=== PATIENT | female | born 1960 | race African-American/Black ===

== ENCOUNTER → 2024-03-10 13:22 | Outpatient (REF) | payer BC, SELFPAY | LOC: WDC 13:22 | PROVIDERS: ATTENDING PHYSICIAN Obstetrics & Gynecology Gynecology; FAMILY PHYSICIAN Family Medicine | DX: Z12.31 Encounter for screening mammogram for malignant neoplasm of breast (principal) | CPT/HCPCS: 77063; 77067 ==

== ENCOUNTER → 2024-07-26 11:51 | Outpatient (REF) | payer BC, SELFPAY | LOC: RAD 11:51 | PROVIDERS: ATTENDING PHYSICIAN Family Medicine | DX: R05.8 Other specified cough (principal); R91.8 Other nonspecific abnormal finding of lung field; D84.821 Immunodeficiency due to drugs | CPT/HCPCS: 71046 ==

== ENCOUNTER → 2024-12-15 08:12 | Outpatient (REF) | payer BC, SELFPAY | LOC: RAD 08:12 | PROVIDERS: ATTENDING PHYSICIAN Family Medicine | DX: J18.9 Pneumonia, unspecified organism (principal) | CPT/HCPCS: 71046 ==

== ENCOUNTER → 2024-12-30 16:23 | Outpatient (REF) | payer BC, SELFPAY | LOC: RAD 16:23 | PROVIDERS: ATTENDING PHYSICIAN Family Medicine | DX: R93.89 Abnormal findings on diagnostic imaging of other specified body structures (principal); J18.1 Lobar pneumonia, unspecified organism; R07.9 Chest pain, unspecified | CPT/HCPCS: 71260; Q9967 ==

== ENCOUNTER → 2025-01-24 13:34 | Outpatient (REF) | payer BC, SELFPAY | LOC: RCS 13:34 | PROVIDERS: ATTENDING PHYSICIAN Internal Medicine; FAMILY PHYSICIAN Family Medicine | DX: R01.1 Cardiac murmur, unspecified (principal) | CPT/HCPCS: 93306 ==

== ENCOUNTER 2025-01-26 09:04 | Day surgery (SDC) | payer BC, SELFPAY ==
[2025-01-26] VITALS (13 sets, daily range): BP systolic 121–150; BP diastolic 80–89; BMI 30.1
[2025-01-26 09:44] LABS: Glucose - Point of Care 123 mg/dl (70-99)
--- NOTE | 2025-01-26 11:12 | ITS.CL.CATH ---
Municipal Engineer - Catheterization
Cardiac Catheterization
Procedure Report:
CARDIAC CATHETERIZATION REPORT
Date of Procedure: 01/26/2025
Referring: Agustin Fragoso M.D.
INDICATION: Severe aortic valve stenosis.
PROCEDURE:
1. Coronary angiography.
A total of 45 minutes of procedural/moderate sedation was utilized. An independent medical services coordinator was present to assist with and help manage the patient's level of consciousness and physiologic status.
ACCESS:
1. 6 [place] right radial artery using a modified Seldinger technique.
CATHETERS:
1. 5 [place] JR4.
2. 5 [place] JL 3.5.
3. 5 [place] multipurpose.
HEMODYNAMIC DATA
Weight (kg): 74.4
AO (s/d/x, mmHg): 125/80/100
LV (s/x mmHg): Not obtained.
AV gradient (x, mmHg): Not obtained.
LEFT VENTRICULOGRAPHY: Not performed.
CORONARY ANGIOGRAPHY
Dominance: Right.
Left Main: Normal size but relatively short, bifurcating vessel. There is no coronary artery disease.
LAD: Large size vessel giving rise to several small diagonals. There is no coronary artery disease.
Ramus: Congenitally absent.
Circumflex: Large size, nondominant vessel giving rise to 2 obtuse marginals. OM1 is a small, vestigial vessel arising very high on the circumflex. OM 2 is a large vessel which subsequently bifurcates into an upper and lower branch. The
upper branch is a medium size branch supplying the lateral wall. The lower branch is a large branch with several distal daughter vessel supplying the entire inferolateral wall. There is no coronary artery disease.
RCA: Medium size, dominant vessel with a low-lying, anterior origin making it difficult to cannulate. Nonselective angiography was performed. There is no evidence of coronary artery disease.
INTERVENTION(S)
None.
Closure Device: Vascular band.
Radiation (mGy): 512.63
DAP (cm2.Gy): 31.8498
Fluoroscopy time (minutes): 12.7
CONCLUSIONS
1. Right dominant circulation with an anterior, low-lying origin of the RCA making it difficult to cannulate from a radial approach with no coronary artery disease in the right or left coronary trees.
2. Severe aortic valve stenosis on echocardiography.
3. Severe right subclavian/innominate artery tortuosity.
RECOMMENDATIONS:
1. Expectant management after cardiac catheterization via right radial approach.
2. Limited weight bearing on the right wrist for one week.
3. Continue evaluation for aortic valve replacement. Consultation with CT surgery.
4. Preop valve CTA.
5. Future cardiac catheterization should be performed from a left radial or femoral approach given the severe tortuosity of the right subclavian/innominate system.
Copy to: Agustin Fragoso M.D., Dena Gallegos M.D.
Vishnu Clemente DO, FACC, FACP
== END 2025-01-26 14:20 | disposition home or self-care (01) ==
LOC: CATH 09:04
PROVIDERS: ATTENDING PHYSICIAN Internal Medicine Cardiovascular Disease; FAMILY PHYSICIAN Family Medicine; OTHER PHYSICIAN Internal Medicine
DX: I35.0 Nonrheumatic aortic (valve) stenosis (principal); E78.1 Pure hyperglyceridemia; E78.00 Pure hypercholesterolemia, unspecified; E11.9 Type 2 diabetes mellitus without complications; I10 Essential (primary) hypertension; Z79.82 Long term (current) use of aspirin; Z79.84 Long term (current) use of oral hypoglycemic drugs; Z79.4 Long term (current) use of insulin; Z79.899 Other long term (current) drug therapy
CPT/HCPCS: 99152; 99153; 82962; 93458; C1769; C1894; Q9967

== ENCOUNTER → 2025-01-31 13:35 | Outpatient (REF) | payer BC, SELFPAY | LOC: RAD 13:35 | PROVIDERS: ATTENDING PHYSICIAN Internal Medicine; FAMILY PHYSICIAN Family Medicine | DX: I35.0 Nonrheumatic aortic (valve) stenosis (principal); R01.1 Cardiac murmur, unspecified; I20.0 Unstable angina; E11.65 Type 2 diabetes mellitus with hyperglycemia; I10 Essential (primary) hypertension; R06.02 Shortness of breath; R07.9 Chest pain, unspecified | CPT/HCPCS: 74174; 75572; Q9967 ==

== ENCOUNTER → 2025-02-21 09:53 | Outpatient (REF) | payer BC, SELFPAY | LOC: RAD 09:53 | PROVIDERS: ATTENDING PHYSICIAN Obstetrics & Gynecology Gynecology; FAMILY PHYSICIAN Family Medicine | DX: Z78.0 Asymptomatic menopausal state (principal) | CPT/HCPCS: 77080 ==

== ENCOUNTER 2025-02-27 05:01 | Inpatient (IN) | payer BC, SELFPAY ==
[2025-02-16 12:30] VITALS: BMI 29.1
[2025-02-16 13:20] LABS: Hematocrit 29.8 % (37.0-47.0); Hemoglobin 9.4 g/dL (12.0-16.0); Mean Corp Hgb Conc. 31.5 g/dL (33.0-37.0); Mean Corpuscular Volume 90.0 fL (81.0-99.0); Nucleated Red Blood Cells % 0 %; Platelet Count 185 10^3/uL (130-400); Red Cell Dist. Width 14.9 % (11.5-14.5)
[2025-02-16 13:32] LABS: INR 0.85; PT 12.2 Sec (11.4-14.6)
[2025-02-16 13:34] LABS: Urine Character Clear (Clear)
[2025-02-16 13:45] LABS: ALT (SGPT) 27 U/L (0-35); AST (SGOT) 35 U/L (14-36); Albumin 4.5 g/dl (3.5-5.0); Alkaline Phosphatase 42 U/L (38-126); Blood Urea Nitrogen 14 mg/dl (7-17); Calcium 9.5 mg/dl (8.4-10.2); Carbon Dioxide 31 mmol/L (22-30); Chloride 104 mmol/L (98-107); Estimated Creatinine Clearance 81 ml/min; Glucose 184 mg/dl (70-99); Potassium 4.0 mmol/L (3.5-5.1); Sodium 141 mmol/L (135-145); Total Protein 8.2 g/dl (6.3-8.2); eGFR > 60.00
[2025-02-16 14:10] LABS: Glycohemoglobin (HgbA1c) 8.2 % (4.0-5.9)
--- NOTE | 2025-02-16 14:12 | CM ---
Chart reviewed. Met with the patient in PAT, reviewed preoperative and postoperative instructions and restrictions, along with showering guidelines. Gave patient 2 soaps. Patient is agreeable to a home visit by CT Transitional RN. Patient is
independent of ADLS, lives with her in a 2 STH, 1 JERROD through the front and 4 JERROD through the deck, 0 DME. Plan is for the patient to return home with CT Transitional RN.
[2025-02-16 14:13] LABS: Urine Red Blood Cell 0-2 /HPF (0-2)
[2025-02-27] VITALS (12 sets, daily range): BP systolic 80–126; BP diastolic 61–84; BMI 28.6
[2025-02-27] MEDS: PROTONIX 40 MG PO (05:43)
[2025-02-27] MEDS: LOPRESSOR 25 MG PO (05:43)
[2025-02-27] MEDS: MAGNESIUM OXIDE 400 MG PO (05:43)
[2025-02-27] MEDS: BACTROBAN 2% OINTMENT 1 APPLIC NASAL ×2 (06:12→19:28)
--- NOTE | 2025-02-27 06:35 | PTCARENOTE ---
pt admitted to CVICU room 2263. pt confirmed 2 showers at home. pt clipped and prepped for CVOR. pre-op meds given. pre-op education provided. vocational education teacher to CVOR.
--- NOTE | 2025-02-27 06:38 | W.CVOR.SURPR ---
CVOR Surgeon Immed Pre Op
-
I have examined this patient prior to performance of the scheduled procedure.
The patient's condition is unchanged from the time of the dictated/written History and
Physical and the patient is able to undergo the scheduled procedure.
[2025-02-27 07:28] LABS: ACT+ - POC 107 Seconds (82-134)
[2025-02-27 07:32] LABS: Urine Character Clear (Clear)
--- NOTE | 2025-02-27 08:19 | PN.DE.MGMTRT ---
Insulin Management
- -
02/27/2025: Diabetes Management Consult
64 year old female with PMH: HTN, Dyslipidemia, RA, T2DM on insulin and bronchiectasis with recently discovered symptomatic severe aortic stenosis. Symptoms predominantly with activity including shortness of breath and chest tightness, escalating
symptoms that were starting to occur at rest as well. Had noticed significant change in activity tolerance and symptomatology when compared to 6 months prior. Given her age and good anatomy with expectation of elevating her first valve, shared
decision making resulted in proceeding with surgical aortic valve replacement and she is now s/p AVR.
Pt is intubated and sedated, unable to interview at this time. Chart review shows pt uses insulin pump, no family at bedside to collaborate hx and no insulin pump. She was initiated in Critical care glycemic protocol intra-op, target goal 110 to 140.
Plan to continue insulin infusion x48 hrs post op. Will follow up tomorrow.
Discussed with Nurse.
Diabetes History
- -
Type of Diabetes: 2 requiring insulin
Pre-Admission Diabetes Regimen
Lab Results
Hemoglobin A1c 8.2 % (4.0-5.9) H 02/16/25 12:43
Insulin Pump Settings
IP Diabetes Regimen
Patient Education
[2025-02-27 08:37] LABS: ACT+ - POC 525 Seconds (82-134)
[2025-02-27 08:54] LABS: B.E. - POC 1.2 mmol/L; Glucose - POC 207 mg/dl (70-99); HCO3 - POC 25 mmol/L (21-28); Hematocrit - POC 26 % PCV (37-47); Hemodilution- POC No; Hemoglobin Calculated - POC 8.7; Ionized Calcium - POC 1.18 mmol/L (1.15-1.33); Lactate - POC 0.37 mmol/L (0.36-0.75); O2 Saturation %Calculated-POC 99.9 % (94-98); PCO2 - POC 38 mmHg (35-48); PO2 - POC 310 mmHg (83-108); POC Comment PRE; Potassium - POC 3.3 mmol/L (3.5-5.1); Sodium - POC 138 mmol/L (136-145); Specimen Type - POC Arterial; pH - POC 7.43 (7.35-7.45)
[2025-02-27 09:05] LABS: ACT+ - POC 520 Seconds (82-134)
--- NOTE | 2025-02-27 09:22 | CM ---
Chart reviewed. Patient is in the OR today. Patient is independent of ADLS, lives with her in 2 STH, 1 JERROD through the front and 4 JERROD through the deck, 0 DME. Plan is for the patient to return home with CT Transitional RN. CM to follow
[2025-02-27 09:26] LABS: B.E. - POC 5.9 mmol/L; Glucose - POC 159 mg/dl (70-99); HCO3 - POC 28 mmol/L (21-28); Hematocrit - POC 25 % PCV (37-47); Hemodilution- POC Yes; Hemoglobin Calculated - POC 8.4; Ionized Calcium - POC 0.92 mmol/L (1.15-1.33); Lactate - POC 0.55 mmol/L (0.36-0.75); O2 Saturation %Calculated-POC 100.0 % (94-98); PCO2 - POC 31 mmHg (35-48); PO2 - POC 412 mmHg (83-108); POC Comment CPB; Potassium - POC 4.0 mmol/L (3.5-5.1); Sodium - POC 138 mmol/L (136-145); Specimen Type - POC Arterial; pH - POC 7.56 (7.35-7.45)
[2025-02-27 09:32] LABS: ACT+ - POC 447 Seconds (82-134)
[2025-02-27 09:39] LABS: B.E. - POC 3.0 mmol/L; Glucose - POC 174 mg/dl (70-99); HCO3 - POC 26 mmol/L (21-28); Hematocrit - POC 24 % PCV (37-47); Hemodilution- POC Yes; Hemoglobin Calculated - POC 8.2; Ionized Calcium - POC 0.99 mmol/L (1.15-1.33); Lactate - POC 0.82 mmol/L (0.36-0.75); O2 Saturation %Calculated-POC 99.9 % (94-98); PCO2 - POC 33 mmHg (35-48); PO2 - POC 250 mmHg (83-108); POC Comment CPB; Potassium - POC 3.5 mmol/L (3.5-5.1); Sodium - POC 139 mmol/L (136-145); Specimen Type - POC Arterial; pH - POC 7.51 (7.35-7.45)
[2025-02-27 09:50] LABS: ACT+ - POC 555 Seconds (82-134)
[2025-02-27 10:05] LABS: ACT+ - POC 568 Seconds (82-134)
[2025-02-27 10:27] LABS: B.E. - POC 3.9 mmol/L; Glucose - POC 162 mg/dl (70-99); HCO3 - POC 28 mmol/L (21-28); Hematocrit - POC 25 % PCV (37-47); Hemodilution- POC Yes; Hemoglobin Calculated - POC 8.6; Ionized Calcium - POC 1.03 mmol/L (1.15-1.33); Lactate - POC 1.17 mmol/L (0.36-0.75); O2 Saturation %Calculated-POC 99.9 % (94-98); PCO2 - POC 36 mmHg (35-48); PO2 - POC 246 mmHg (83-108); POC Comment WARM; Potassium - POC 3.4 mmol/L (3.5-5.1); Sodium - POC 141 mmol/L (136-145); Specimen Type - POC Arterial; pH - POC 7.49 (7.35-7.45)
[2025-02-27 10:29] LABS: ACT+ - POC 123 Seconds (82-134)
[2025-02-27 10:46] LABS: B.E. - POC 1.6 mmol/L; Glucose - POC 144 mg/dl (70-99); HCO3 - POC 26 mmol/L (21-28); Hematocrit - POC 22 % PCV (37-47); Hemodilution- POC Yes; Hemoglobin Calculated - POC 7.5; Ionized Calcium - POC 1.37 mmol/L (1.15-1.33); Lactate - POC 1.81 mmol/L (0.36-0.75); O2 Saturation %Calculated-POC 99.8 % (94-98); PCO2 - POC 38 mmHg (35-48); PO2 - POC 218 mmHg (83-108); POC Comment POST; Potassium - POC 2.8 mmol/L (3.5-5.1); Sodium - POC 137 mmol/L (136-145); Specimen Type - POC Arterial; pH - POC 7.44 (7.35-7.45)
[2025-02-27 10:54] LABS: ACT+ - POC 120 Seconds (82-134)
[2025-02-27 11:11] LABS: B.E. - POC 0.2 mmol/L; Glucose - POC 120 mg/dl (70-99); HCO3 - POC 25 mmol/L (21-28); Hematocrit - POC 23 % PCV (37-47); Hemodilution- POC Yes; Hemoglobin Calculated - POC 7.9; Ionized Calcium - POC 1.22 mmol/L (1.15-1.33); Lactate - POC 1.32 mmol/L (0.36-0.75); O2 Saturation %Calculated-POC 100.0 % (94-98); PCO2 - POC 42 mmHg (35-48); PO2 - POC 450 mmHg (83-108); Potassium - POC 2.8 mmol/L (3.5-5.1); Sodium - POC 142 mmol/L (136-145); Specimen Type - POC Arterial; pH - POC 7.39 (7.35-7.45)
--- NOTE | 2025-02-27 11:28 | W.PN.CD ---
Addendum entered and electronically signed by Harshad Sotelo MD 02/27/25 18:40:
I reviewed and agree with the note by SALVADOR and it accurately reflects our care.
I saw and evaluated the patient, and I provided the substantive portion of the medical decision making. My assessment and plan is below:
64-year-old female with hypertension, dyslipidemia, diabetes, RA, and bronchiectasis who underwent surgical aortic valve replacement today with Dr. Weaver. She is extubated and doing well postoperatively. Has some pain but it is well-managed.
Physical exam: RRR, no murmurs, clear lungs anteriorly, no lower extremity edema
Telemetry: NSR, 1 ventricular triplet
Severe aortic stenosis s/p AVR: Continue routine postoperative care per CT surgery. Continue aspirin 81 mg.
Hypertension: BP is fine for now and just came off pressors. Resume as tolerated.
We will continue to follow along with you.
Original Note:
Today's Communication / Plan
-
-close post-op monitoring and care with weaning of drips and vent as tolerated per CT surgery/CVICU protocol
Impression / Plan
-
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
Severe aortic stenosis:
-now s/p AVR (23 mm inspiris) and LAAL with Dr. Weaver 02/27/25
-intubated and ventilated post-op
-remains on Levophed
-per report EF normal on RUCHI
-post-op CXR pending
-SR on tele/EKG
-CT's, Jayda, pacer wire in place
-post-op anemia noted, next hgb pending- transfuse as indicated post-op
-ASA, BB ordered
Hypertension:
-monitor post-op
-currently on Levophed as above
DM II:
-monitor glucose closely post-op
HLD:
-on statin as OP - resume when able
Previous data:
Echocardiogram 01/24/25: Hyperdynamic left ventricular systolic function without regional wall motion abnormalities. LVEF 72%. Mild concentric LVH. Severe aortic stenosis. Peak/mean gradient 86/52 mmHg, KENIA 0.8 cm, DVI 0.26. Mild aortic
regurgitation. PHT 500 ms.
Cardiac catheterization on 01/26/2025 revealed: Right dominant circulation with an anterior, low-lying origin of the RCA making it difficult to cannulate from a radial approach with no coronary artery disease in the right or left coronary trees.
Severe aortic valve stenosis on echocardiography. Severe right subclavian/innominate artery tortuosity.�
Physical Exam
Vital Signs/Labs
Vital Signs
Temp Pulse Resp BP Pulse Ox
97.7 F 82 16 114/69 98
02/27/25 05:27 02/27/25 05:43 02/27/25 05:27 02/27/25 05:43 02/27/25 05:27
02/26/25 02/27/25 02/28/25
06:59 06:59 06:59
Actual Weight 161 lb 2.526 oz
PT 12.2 Sec (11.4-14.6) 02/16/25 12:43
INR 0.85 02/16/25 12:43
Physical Exam
Constitutional: No acute distress
Cardiovascular: Rhythm & rate is regular
Respiratory: Other (intubated/ventilated)
Neuro/Psych: Other (intubated/sedated)
Other: Skin (midsternal incision site CDI)
Data Reviewed
-
Date of Service: February 27, 2025
EKG: Tracing Personally Visualized and interpreted (SR) and Other (SR)
Labs: Labs Reviewed by me (hgb 8.1)
--- NOTE | 2025-02-27 11:31 | W.PN.CT.SURG ---
CT Surgery Operative Note
-
CARDIAC SURGERY OPERATIVE REPORT
Preoperative Diagnosis: Aortic valve stenosis with significant symptoms
Postoperative Diagnosis: Same
Procedure(s) Performed:
1. Standard Sternotomy with Aortic and Right Atrial Cannulation
2. Aortic valve replacement 23 mm Inspiris Resilia
3. Left atrial appendage ligation with 35 mm atriclip device
3. Transesophageal echocardiography
4. Placement of Temporary Ventricular Pacing Wires
Date of Surgery: 02/27/2025
Comorbidities:
1. Rheumatoid arthritis
2. Type 2 diabetes
3. Hypertension
4. Hyperlipidemia
5. Bronchiectasis
Attending Surgeon: Mony Weaver MD, MPH
Assistants: Starr Mascorro PA-C (present and necessary to child center assistant, retraction, suction, exposure, suture management, and wound closure under my direction)
Anesthesiology: Greg Rebollar MD and Mirian Petty CRNA
Scrub and Circulating RNs: Codi Lebron RN, Cali Flores RN
Ultrasound Supervisor: Ana Agustin CCP
Anesthesia: GETA
EBL: per perfusion records
Products: None
CPB Time: 92 minutes
Aortic Cross Clamp Time: 77 minutes
Indication(s) for Procedures: This is a 64-year-old female with severe symptomatic aortic valve stenosis. Peak and mean gradient of 86 and 52 mmHg with aortic valve area 0.8 cm�. Symptoms predominantly with activity including shortness of breath
and chest tightness, escalating symptoms that were starting to occur at rest as well. Had noticed significant change in activity tolerance and symptomatology when compared to 6 months prior. Given her age and good anatomy with expectation of
elevating her first valve, shared decision making resulted in proceeding with surgical aortic valve replacement.
Aortic Valve Description: Significantly calcified mostly in the leaflets, noncoronary leaflet most severely calcified essentially nonmobile. Very minimal annular calcification or calcifications into the LVOT.
Findings: Preoperative RUCHI revealed normal function, with thick hypertrophied LV and severe aortic stenosis with mild to moderate aortic insufficiency. No other significant valvular abnormalities. The aortic valve was severely calcified with
fairly uniform mostly found within the leaflets without significant annular or LVOT calcifications. Once leaflets were removed, the annulus was pretty easily cleaned off to provide a smooth calcium free area to place annular sutures. Antegrade
cardioplegia was initiated and good arrest was obtained at 300 cc without significant LV distention. Post valve replacement function was preserved and normal, well-seated 23 mm Inspiris Resilia aortic valve without paravalvular leak. Regained
normal sinus rhythm without need for ventricular pacing.
Specimen(s): Aortic valve.
Prosthesis: 23 mm Inspiris Resilia aortic valve. Serial #[id number].
Description of Procedure: The patient was taken to the operating room. Their identity and procedure to be performed were verified and they were positioned supine on the operating table. Induction via general anesthesia with endotracheal intubation
was performed and central venous access and arterial monitoring were inserted. A preoperative transesophageal echocardiogram was performed to assess cardiac function and valvular function. The patient was then prepped and draped from chin to feet in
a sterile fashion. A preoperative time-out was performed with all members of the team present. A midline chest incision was performed along with median sternotomy. The innominate vein was isolated. Full heparinization was given (a total of 40,000
units). We created a pericardial well. The aortic cannulation site was chosen where it was soft, pliable, and free of calcium. Cannulation was performed with an arterial cannula in the ascending aorta and a triple-stage venous cannula through the
right atrial appendage. The arterial cannula line had an appropriate bounce and correlating pressures with test dosing. Next, a root vent/antegrade cannula was inserted into the ascending aorta. The ACT was confirmed to be over 400 and retrograde
autologous priming was performed before commencing cardiopulmonary bypass. The pulmonary artery was away from the aorta to facilitate a clamp site and aortotomy. A left ventricular vent was placed at the right superior pulmonary vein and
secured. The aortic cross-clamp was placed after decreasing the flow on the bypass and mean arterial pressure. A total of 1.2L initial dose of antegrade Del-Nido cardioplegia solution was given and planned for re-dosing every 75 minutes as
necessary. There was rapid electro-mechanical arrest of the heart at 300 cc of cardioplegia. The left ventricle was observed for distention on echocardiogram and manual palpation. Cold slush was placed into a sponge and topically on the RV while we
systemically cooled to 34 degrees centigrade.
Position of the heart to expose the left atrial appendage using visual inspection shows a 35mm clip which was placed without complication. Carbon dioxide was used to flood the field. We manually identified the location of the right coronary take
off. An aortotomy was made approximately 2cm above the sinotubular junction. The location of both left and right coronary vessels were visualized in the root.The leaflets were excised and sent for pathological assessment. The annulus was debrided of
any calcium being mindful of the annulus and membranous septum. The root and left ventricular outflow tract were thoroughly irrigated to remove any debris. A total of 16 non-pledgeted 2-0 Ti-Cron inverted annular sutures were placed [id number]
circumferentially. These were brought through the sewing cuff of the prosthetic valve which as then parachuted into place. The left and right coronary ostia were visualized and were unobstructed by the valve. A Cor-Knot device was used to secure the
annular sutures. The valve was inspected and was well seated. The aortotomy was approximated with 4-0 prolene in two layers. De-airing maneuvers were performed and temporary bipolar ventricular pacing wires were placed on the base of the right
ventricle. The patient was placed in a Trendelenburg position and flows on bypass were lowered. The aortic cross clamp was removed and flows were slowly brought back up. The aortotomy appeared hemostatic. Transesophageal echocardiography revealed
no paravalvular leak and appropriate prosthetic function. Once de-airing was satisfactory, the left ventricular and root vents were removed. After verifying acceptable parameters, we initiated weaning from cardiopulmonary bypass. Once we were off
cardiopulmonary bypass, the venous cannula was clamped and removed. A test dose of protamine was administered and the patient was monitored for any adverse reaction before resuming protamine. Once half of the protamine dose was delivered, pump
suckers were turned off and the systolic blood pressure was lowered for aortic decannulation. The aortic cannula was removed and pursestrings were tied down. All cannulation sites were oversewn with a 4-0 prolene. The aortotomy suture line was
inspected and hemostasis was confirmed. Mediastinal hemostasis was obtained. Two 24Fr Tiburcio drains were placed within the pericardium. The sternum was approximated with 4#7 single and 3 #6 double stainless steel wires. Fascia was approximated with
#1 vicryl suture. The subcutaneous, dermis and epidermis were closed in layers in a running fashion. The skin wound was cleansed and dressed.
All instrument, sponge, and needle counts were confirmed to be correct x 2 at the end of the operation. The patient was transferred to the cardiac intensive care unit in critical but stable condition.
I, Dr. Mony Weaver, was present, scrubbed for, and performed all critical elements of this procedure.
Mony Weaver MD, MS
Cardiothoracic Surgeon
[facility]
This operative dictation was created using the [employer] dictation system. Please excuse any grammatical, typographical, or 'sound alike' errors
[2025-02-27 11:59] LABS: Glucose - Point of Care 161 mg/dl (70-99)
[2025-02-27 12:14] LABS: B.E. 1.7 mmol/L; HCO3 25.7 mmol/L (21-28); O2 Saturation % 97.2 % (94-98); PCO2 37 mmHg (32-35); PO2 153 mmHg (83-108); Potassium 3.7 mMOL/L (3.5-5.1); Sodium 139 mMOL/L (136-145)
[2025-02-27] MEDS: LR 250 ML IV ×3 (12:15→14:14)
[2025-02-27 12:17] LABS: Hematocrit 25.7 % (37.0-47.0); Hemoglobin 8.1 g/dL (12.0-16.0)
[2025-02-27 12:22] LABS: APTT 33.8 Sec (23.4-35.0); INR 1.35; PT 16.8 Sec (11.4-14.6)
[2025-02-27] MEDS: KCL 50 IV ×2 (12:22→13:13)
[2025-02-27] MEDS: NSS 500 IV (12:25)
[2025-02-27] MEDS: ANCEF 10 IV ×2 (12:25)
--- NOTE | 2025-02-27 12:25 | CON.INTV ---
Consultation
Consultation Request
Date/Time Consultation Requested: 02/27/25
Date/Time Consultation Performed: 02/27/25
Performing Provider: Jorge Luis
Reason for Consultation: CVICU
Medical History
-
History of Present Illness:
64-year-old female with previous history of aortic valve stenosis presenting for elective replacement. She had ongoing shortness of breath with exertion and chest tightness prior to admission. This has declined in the past 6 months. Underwent AVR
on 02/27/2025 and postoperatively transferred to CVICU for further management.
Past Medical History
Past Medical History: Other (see list below)
Social History
Tobacco: Non-smoker
Alcohol: None
Drug: None
Allergies / Home Medications
Allergies
Allergy/AdvReac Type Severity Reaction Status Date / Time
doxycycline Allergy GI upset Verified 02/14/25 15:27
minocycline Allergy GI upset Verified 02/14/25 15:27
monosodium glutamate Allergy Hives Verified 02/14/25 15:27
Home Medications
�Medication �Instructions �Recorded �Confirmed �Last Taken �Type
Biosil 1 tab PO DAILY Supplement 01/26/25 02/27/25 02/26/25 08:00 History
CoQ-10 1 tab PO DAILY Supplement 01/26/25 02/27/25 02/26/25 08:00 History
aspirin 81 mg capsule 81 mg PO DAILY Blood Clot 01/26/25 02/27/25 02/26/25 08:00 History
Prevention/Tx
insulin lispro 100 unit/mL 1 sliding scale dose SC 01/26/25 02/27/25 02/27/25 03:30 History
subcutaneous cartridge (Humalog DIRECTED insulin pump
U-100 Insulin)
leflunomide 20 mg tablet 20 mg PO DAILY 01/26/25 02/27/25 02/26/25 08:00 History
losartan 100 1 tab PO DAILY Blood Pressure 01/26/25 02/27/25 02/26/25 08:00 History
mg-hydrochlorothiazide 25 mg tablet
metformin 500 mg tablet 500 mg PO DAILY Diabetes 01/26/25 02/27/25 02/26/25 08:00 History
Held on 01/26/25.
Instructions: Resume on
01/28/25.
rosuvastatin 20 mg tablet 20 mg PO HS High Cholesterol 01/26/25 02/27/25 02/26/25 20:00 History
Vitamin B-12 1 tab PO DAILY Supplement 02/14/25 02/27/25 02/26/25 08:00 History
Vitamin D3 1 tab PO DAILY Supplement 02/14/25 02/27/25 02/26/25 08:00 History
insulin glargine 100 unit/mL (3 14 unit SC QPM PRN if insulin pump 02/14/25 02/27/25 Unknown History
mL) subcutaneous pen fails
insulin lispro 100 unit/mL 9 unit SC TID PRN with meals if 02/14/25 02/27/25 02/23/25 History
subcutaneous pen pump fails
Review of Systems
-
History Source: Patient
All other systems: Negative unless noted
Vitals / Labs / Diagnostic Testing
Vital Signs
Temp Pulse Resp BP Pulse Ox
95.8 F L 85 14 114/69 100
02/27/25 12:00 02/27/25 12:15 02/27/25 12:10 02/27/25 05:43 02/27/25 12:15
Laboratory Results
02/27/25
11:54
pH 7.45
pCO2 37 H
pO2 153 H
HCO3 25.7
O2 Delivery Level
Diagnostic Testing:
Physical Exam
-
HEENT: Normocephalic, Anicteric and Moist Mucous Membranes
Cardiovascular: S1/S2 and Regular Rhythm
Respiratory: Clear, Non-Labored Respirations and Other (chest tube, ETT)
GI: Soft, Non Distended and Non Tender
Neurology: Other (sedated/lethargic)
Skin: Warm, Dry and Good Color
General: Comfortable and Other (NAD)
Assessment
-
64-year-old female with previous history of aortic valve stenosis presenting for elective replacement. She had ongoing shortness of breath with exertion and chest tightness prior to admission. This has declined in the past 6 months. Underwent AVR
on 02/27/2025 and postoperatively transferred to CVICU for further management.
Severe aortic stenosis s/p AVR 02/27/25
Perioperative mechanical ventilation
Dyspnea on exertion
Postoperative anemia
Conditions present prior to admission
Rheumatoid arthritis involving multiple sites with positive rheumatoid factor
Type 2 diabetes
Hypertension
Hyperlipidemia
Mixed hyperlipidemia
Benign congenital leukopenia
Bronchiectasis
Laparoscopy x2 for Infertility
Cardiac Cath 01/26/2025
Teeth extraction
Plan
S/p AVR POD #0
Titrate off pressors per protocol
ECHO reviewed with normal function
PA catheter readings reviewed
Management of chest tubes per primary service
Intubated/sedated, initiate SAT when able
Pain control
RASS goal of 0 to -1
Intubated for procedure, SBT trial when patient able to spontaneously breath
Current vent settings: SIMV 500/14/40/5+
ABG(s) reviewed
CXR with no obvious opacities/infiltrates, low lung volumes, ETT in good position, lines/tubes in place
Extubate per protocol
Maintain supplement oxygen as needed
Prior history of pulmonary disease: bronchiectasis
Prior PFTs reviewed--moderate obstruction
Can add nebulizers if needed
Aspiration precautions
Encouraged incentive spirometry, OOB/ambulation/early mobility
Outpatient pulmonary FU recommended
Advance diet as tolerated following extubation
GI prophylaxis if indicated for mechanical ventilation >48 hours
Monitor critical I/O's
Montelongo/chest tube output
Hb/platelets postoperatively stable
Trend CBC for now
Can transfuse if indicated for Hb <7, plt <50 in surgical patients
DVT prophylaxis including SCDs
Insulin protocol initiated and ongoing
Transition to SQ/off as indicated per team
We will follow
Diagnostic Data
Chest X-Ray:
CT Scan: CHEST 01/31/25- Chest: Stable appearance of chronic right lower lobe collapse with bronchiectasis and cystic change, likely sequelae of remote infection. No suspicious pulmonary nodules, areas of airspace disease, pleural effusions,
pericardial effusions or enlarged lymph nodes in the thorax. Origins of the great vessels from the aortic arch are patent.
Echo: 01/24/25- . Hyperdynamic left ventricular systolic function without regional wall motion abnormalities. LVEF 72%.
2. Mild concentric LVH.
3. Severe aortic stenosis. Peak/mean gradient 86/52 mmHg, KENIA 0.8 cm², DVI 0.26.
4. Mild aortic regurgitation. PHT 500 ms.
5. No prior study available for comparison.
[facility] 01/26/25. Right dominant circulation with an anterior, low-lying origin of the RCA making it difficult to cannulate from a radial approach with no coronary artery disease in the right or left coronary trees.
2. Severe aortic valve stenosis on echocardiography.
3. Severe right subclavian/innominate artery tortuosity.
PFT's: 02/16/25- Spirometry pre bronchodilator: FVC was 2.41L / 80% predicted. FEV1 was 1.55L / 66% predicted. Ratio 64
Spirometry post bronchodilator: FVC was 2.55L / 85% predicted, 6% change. FEV1 was 1.64L / 69% predicted, 6% change. Ratio 64
Moderate obstruction. There's no significant bronchodilator response.
Reports and relevant images were personally reviewed.
Critical Care time 51 mins -- The patient is admitted for acute critical illness for the treatment of vital organ failure and/or prevention of further life-threatening conditions. Total care includes time spent in review of history, physical exam,
medications, hemodynamic/ventilator parameters, laboratory data, imaging and discussion with house staff, pharmacy, respiratory therapy, esthetics instructor, and nursing.
--- NOTE | 2025-02-27 12:31 | PTCARENOTE ---
received pt from the CVOR into 2263, sinus rhythm in tele w HR 86, epicardial pacing wire set to VVI 30/10 for backup. Left radial mia leveled and zeroed, levo dose adjusted to maintain MAP goal of 65, right IJ cordis w swan floated to 40, CI 1.89
CO 3.32, CVP 5-8, PAP 25/16. #8 ETT/ 25cm right lip VENT SETTINGS: SIMV 40%/500/14/+5 PEEP, pox 100%. Montelongo draining yellow, mediastinal CTs x2 w minimal amount of red drainage. PIV flushes easily. Post op EKG, labs and CXR completed. CPOT 0 RASS -5
DRIPS: Levophed 2mcg
Precedex 0.6mcg
Insulin titrated per glycemic protocol
[2025-02-27 12:34] LABS: Blood Urea Nitrogen 11 mg/dl (7-17); Estimated Creatinine Clearance 92 ml/min; Glucose 143 mg/dl (70-99); Magnesium 2.4 mg/dl (1.6-2.3)
--- NOTE | 2025-02-27 12:51 | W.PN.UPDATE ---
Update Note
Progress Note Update
64-year-old female with known PMHx of nonrheumatic who presented for outpatient consultation with complaints of dyspnea on exertion and chest tightness at rest and exertion. Patient presented today for elective AVR with Dr. Weaver.
IV fluids: 1100 mL
Crystalloid:� 1000 mL
U.O.:� 600 mL
UF:� 1400 mL
Blood:� none
Wires:� V-wires
Inotropes:� none
Pressors:� Levophed (2)
Sedatives:� Precedex
�
NEURO: sedated on Precedex, pupils +2mm B/L
RESP: #8OT @25cm> 500/40%/14/5. Lungs clear B/L. 2 mediastinal (30cc on arrival) chest tubes to -20cm suction. Sanguineous drainage
CV: RRR +S1, S2, no S3, no�rub, no murmur. Dermabond to median sternotomy. RIJ w/Murtaugh locked @ 40 cm. PA 23/15; CVP 9; C.O 3.94/CI 2.24
ABD: round, soft, no BS
EXT: no edema, +2/4 DP pulses B/L, L radial A-line intact
: Montelongo with clear yellow urine
�
A/P: POD #0 s/p AVR (23 mm Inpiris Resilia) with eLAA (35 mm Atriclip) with Dr. Weaver
�
# Severe, Symptomatic Aortic Stenosis
- Patient with known , presented for elective AVR
- POD#0 s/p AVR
- Intra-op RUCHI: EF 65-70%, severe LVH (18mm), NRWMA, normal systolic function,�well-seated AVR with no PVL, MG 10 mmHg, trace/mild MR, no TR, no PI
- Maintain SBP 90-110 mmHg in initial post-operative period
- wean & extubate
- con't GI PPx with PPI
- con't mechanical DVT PPx
- will need instruction regarding antibiotic prophylaxis for dental and invasive procedures
#Acute surgical blood loss anemia-expected
- pre-op H/H 9.4/25.7, initial post-op H/H 8.1/25.7
- trend CBC
�
# T2DM (A1C 8.2%)
- Insulin infusion x 48h
- Diabetic Nurse Practitioner consulted
�
# Rheumatoid Arthritis
- Known PMHx of RA, taking leflunomide 20 mg daily
- Continue to hold leflunomide 20 mg/d in post-operative setting
# Bronchiectasis
- Patient with chronic bronchiectasis with chronic RLL collapse
- Suspected to be secondary from remote infection
- Pleural space not entered during surgery
# Hypertension
- Patient on losartan-hydrochlorothiazide at home, last dose 02/26/25, holding
- Currently requiring vasopressor support in post-operative setting
# Hyperlipidemia
- resume�home regiment of rosuvastatin 20 mg HS
[2025-02-27 12:53] LABS: Platelet Count 99 10^3/uL (130-400)
[2025-02-27 13:02] LABS: Glucose - Point of Care 200 mg/dl (70-99)
[2025-02-27] MEDS: NOVOLOG FLEXPEN SC ×2 (13:08→17:08)
--- NOTE | 2025-02-27 13:57 | PTCARENOTE ---
pt placed on CPAP wean by RT
[2025-02-27 14:00] LABS: Glucose - Point of Care 186 mg/dl (70-99)
--- NOTE | 2025-02-27 14:00 | PTCARENOTE ---
pt apneic, placfed back on SIMV by RT
--- NOTE | 2025-02-27 14:22 | PTCARENOTE ---
CG bath completed
[2025-02-27 14:42] LABS: Hematocrit 23.7 % (37.0-47.0); Hemoglobin 7.6 g/dL (12.0-16.0); Platelet Count 97 10^3/uL (130-400)
[2025-02-27 15:01] LABS: Glucose - Point of Care 139 mg/dl (70-99)
[2025-02-27] MEDS: CALCIUM GLUCONATE 100 IV (15:14)
--- NOTE | 2025-02-27 15:20 | PTCARENOTE ---
hgb 7.6, CT SYED made aware. 1 unit PRBC being transfused as ordered.
[2025-02-27 15:37] LABS: B.E. - POC 1.3 mmol/L; Blood Urea Nitrogen - POC 10 mg/dl (3-120); Chloride - POC 111 mmol/L (96-111); Creatinine - POC 0.69 mg/dl (0.3-1.0); Glucose - POC 152 mg/dl (70-99); HCO3 - POC 27 mmol/L (21-28); Hematocrit - POC 33 % PCV (37-47); Hemodilution- POC Yes; Hemoglobin Calculated - POC 11.3; Ionized Calcium - POC 1.21 mmol/L (1.15-1.33); Lactate - POC 1.21 mmol/L (0.36-0.75); O2 Saturation %Calculated-POC 99.5 % (94-98); PCO2 - POC 49 mmHg (35-48); PO2 - POC 179 mmHg (83-108); Potassium - POC 4.0 mmol/L (3.5-5.1); Sodium - POC 145 mmol/L (136-145); Specimen Type - POC Arterial; pH - POC 7.36 (7.35-7.45)
--- NOTE | 2025-02-27 15:52 | PTCARENOTE ---
pt extubated to 6L NC, pox 100%, achieved 1000 on IS.
[2025-02-27] MEDS: OFIRMEV 100 IV (16:26)
[2025-02-27 17:06] LABS: Glucose - Point of Care 126 mg/dl (70-99)
[2025-02-27] MEDS: LOW STRENGTH ASPIRIN 81 MG PO (17:07)
[2025-02-27] MEDS: NEURONTIN PO (17:08)
[2025-02-27] MEDS: PACERONE PO (17:08)
[2025-02-27] MEDS: ANCEF 5 IV (17:56)
[2025-02-27 19:13] LABS: Glucose - Point of Care 112 mg/dl (70-99)
[2025-02-27] MEDS: DILAUDID 0.25 MG IV ×2 (19:20→23:14)
[2025-02-27] MEDS: SENOKOT PO (19:29)
--- NOTE | 2025-02-27 19:51 | PTCARENOTE ---
Received pt from day shift RN at 1900. Pt AOx4, pupils 2 equal reactive, moves all extremities, complains of 8/10 incisional pain. NSR HR 80s, BP 100-120/60-70, maintaining MAP goal >65. PAs 10-20/8-10, CVP 0-2, palpable pulses, no edema, 1V wire,
VVI 30, 10, .8. Resp, lungs are clr, [address], -20 wall suction, dark red drainage, no air leak or crepitus. Hypoactive bowel sounds, aranda draining clr yellow urine. MS LYNN, well approximated, no draining. L POLA moore w/jarad @ 40, PIV
x1. Levo, insulin gtt continued. See flowsheet for further documentation.
[2025-02-27 20:07] LABS: Glucose - Point of Care 100 mg/dl (70-99)
[2025-02-27 21:20] LABS: Glucose - Point of Care 105 mg/dl (70-99)
[2025-02-27] MEDS: ROXICODONE 5 MG PO (21:36)
[2025-02-27] MEDS: CALCIUM GLUCONATE 130 MG IV (21:38)
[2025-02-27 22:22] LABS: Glucose - Point of Care 91 mg/dl (70-99)
[2025-02-27] MEDS: TYLENOL PO (22:25)
[2025-02-27] MEDS: PACERONE 200 MG PO (22:28)
[2025-02-27] MEDS: NEURONTIN 100 MG PO (22:29)
[2025-02-27] MEDS: CRESTOR 20 MG PO (22:29)
[2025-02-27 23:22] LABS: Glucose - Point of Care 101 mg/dl (70-99)
--- NOTE | 2025-02-27 23:51 | PTCARENOTE ---
Pt reassessment unchanged, VSS, HR 70-80s, 3g calcium given per order, able to wean off levo, maintaining MAP >65. Pt given heather 5mg and IV dilaudid 0.25mg for pain control. Insulin gtt infusing.
[2025-02-28] VITALS (34 sets, daily range): BP systolic 66–123; BP diastolic 41–81; BMI 29.6
--- NOTE | 2025-02-28 00:15 | PTCARENOTE ---
Pt CI 2.5, CO 4.4, SVR 1363, PA 17/8, CVP 3. PA CTS Ed Ivonne made aware of PAD and CVP numbers, no change in plan of care.
[2025-02-28 00:18] LABS: Glucose - Point of Care 93 mg/dl (70-99)
[2025-02-28] MEDS: DILAUDID 0.5 MG IV (01:15)
[2025-02-28 02:10] LABS: Glucose - Point of Care 116 mg/dl (70-99)
[2025-02-28] MEDS: NOVOLIN R INSULIN INFUSION 100 IV ×2 (02:34→14:05)
[2025-02-28] MEDS: ANCEF 5 IV ×2 (02:34→10:22)
[2025-02-28] MEDS: LR 250 ML IV ×2 (02:35→16:31)
[2025-02-28 03:42] LABS: Hematocrit 25.7 % (37.0-47.0); Hemoglobin 8.6 g/dL (12.0-16.0); Mean Corp Hgb Conc. 33.5 g/dL (33.0-37.0); Mean Corpuscular Volume 87.1 fL (81.0-99.0); Platelet Count 75 10^3/uL (130-400); Red Cell Dist. Width 14.7 % (11.5-14.5)
[2025-02-28 03:52] LABS: Blood Urea Nitrogen 13 mg/dl (7-17); Calcium 8.7 mg/dl (8.4-10.2); Carbon Dioxide 27 mmol/L (22-30); Chloride 111 mmol/L (98-107); Estimated Creatinine Clearance 92 ml/min; Glucose 103 mg/dl (70-99); Magnesium 1.7 mg/dl (1.6-2.3); Potassium 3.9 mmol/L (3.5-5.1); Sodium 138 mmol/L (135-145); eGFR > 60.00
--- NOTE | 2025-02-28 04:00 | W.PN.CT ---
Today's Communication / Plan
-
Plan:
-No major issues overnight. Hemodynamically and neurologically intact
-Pt was successfully extubated yesterday 02/27/25 @ 1550
-Unable to wean off Levophed gtt overnight. currently on 2, also on insulin gtt per protocol
-Last CI 2.73, MVO2 69.7%. U/O since OR 750 mL
-Monitor chest tube drainage: 2 meds 75/305. F/U AM CXR
-Maintain temporary PW
-BP soft, will place AM dose of Lopressor on hold
-Consider 1u PRBC
-Noted to have periods of tachycardia with ectopies, will increase Amiodarone to 400 TID
-Cont. current meds (ASA, Amiodarone, Lopressor, Crestor)
-Will D/C Sawyer and A-line later today
-Will D/C aranda catheter later today
-Continue insulin gtt another day per protocol, Diabetes education/management consult as pt is a diabetic with A1C of 8.2
-Maintain cordis
-Encourage use of IS
-Wean off O2 as tolerated
-OOB into chair/Ambulate
Assessment / Plan
-
Assessment:
-S/P Standard Sternotomy/Aortic valve replacement (23 mm Inspiris Resilia)/Left atrial appendage ligation (35 mm atriclip device), by Dr. Weaver, 02/27/25, pod#1
-Severe
-Moderate MR
-LVEF 65-70% per intraop RUCHI
-Rheumatoid arthritis
-Type 2 diabetes (hgb A1C 8.2)
-Hypertension
-Hyperlipidemia
-Bronchiectasis
-Congenital leukopenia
-S/P Laparoscopy x 2 (06/2008, 06/2009)
-S/p Cardiac cath, 01/26/25
-Acute postop blood loss/Anemia (transfused 1u PRBC postop)
-Acute postop thrombocytopenia (stable, no active bleed)
-Acute postop atelectasis
-Acute postop hypovolemia with subsequent hypervolemia
Discussed patient care with: Cardiology, Nursing, Respiratory Therapy, Pharmacy and Care Team
Subjective
Procedure
S/P Standard Sternotomy/Aortic valve replacement (23 mm Inspiris Resilia)/Left atrial appendage ligation (35 mm atriclip device), by Dr. Weaver, 02/27/25
-
Date of Service: February 28, 2025
Pt c/o incisional pain, otherwise feels well
Objective Data
-
Lab Results
02/28/25 03:08
02/28/25 03:08
PT 16.8 Sec (11.4-14.6) H 02/27/25 11:57
INR 1.35 02/27/25 11:57
APTT 33.8 Sec (23.4-35.0) 02/27/25 11:57
Vital Signs
Vital Signs
Temp Pulse Resp BP Pulse Ox
99.7 F 86 17 109/59 100
02/28/25 03:30 02/28/25 03:30 02/28/25 03:30 02/28/25 03:30 02/28/25 03:30
CT Intake/Output/Weight
02/27/25 02/27/25 02/28/25
06:59 18:59 06:59
Intake Total 1817.0 / 2680.2 863.2 / 2680.2
Output Total 580 / 970 390 / 970
Balance 1237.0 / 1710.2 473.2 / 1710.2
SaO2: 100 (2L)
Physical Exam
-
General: Awake, Oriented and AOx3
Cardiovascular: Regular rate & rhythm, No Murmurs, No Rub and No Gallop
Respiratory: Decreased Breath Sounds (at bases, otherwise clear)
Sternum: Stable
Incision: Clean, Dry, Intact and Dressing Intact
Extremities: Other (+trace edema)
Data Reviewed
-
Lab Results: Results Reviewed
Medications: Active Meds Reviewed
Chest X-Ray: Report Reviewed and Image Reviewed
ECG: Report Reviewed and Image Reviewed
[2025-02-28] MEDS: DILAUDID 0.25 MG IV (04:03)
[2025-02-28] MEDS: PACERONE 200 MG PO (04:08)
[2025-02-28] MEDS: KCL 20 MEQ PO (04:08)
[2025-02-28] MEDS: CALCIUM GLUCONATE 100 IV ×2 (04:09→08:25)
[2025-02-28 04:12] LABS: Glucose - Point of Care 99 mg/dl (70-99)
[2025-02-28] MEDS: MAGNESIUM SULFATE 50 IV (04:26)
--- NOTE | 2025-02-28 04:29 | PTCARENOTE ---
Pt reassessment mostly unchanged. NSR HR 70-90s, occasional PVCs and PACs, BPs labile, 250 LR bolus given w/some improvement, restarted levo at 2 to maintain MAP goal >65. Additional 2g calcium gluconate given per order, 2g of Mag, 20meq PO K given
as well. CHG bath complete, linens and gown changed. Insulin gtt cont. Plan to remove jarad and mia.
--- NOTE | 2025-02-28 05:26 | PTCARENOTE ---
Pt remains hypotensive MAPs <65, SBP 80s, after 2g calcium, unable to wean levo off. CT PA aware at the bedside. Plan to keep [place], mia, and aranda in place till am rounds w/Dr. Weaver.
[2025-02-28] MEDS: LEVOPHED 250 IV (05:43)
[2025-02-28] MEDS: TYLENOL 975 MG PO ×3 (05:45→22:52)
[2025-02-28 05:57] LABS: Glucose - Point of Care 79 mg/dl (70-99)
[2025-02-28 06:31] LABS: Hepatitis C Antibody Negative (Negative)
[2025-02-28 07:05] LABS: Glucose - Point of Care 138 mg/dl (70-99)
--- NOTE | 2025-02-28 07:09 | W.PN.ANS.POP ---
Anesthesia Post Operative
- Anesthesia Post Op Note
Vital Signs Stable-See Nursing Note: Yes
Airway Patent: Yes
Adequate Pain Control: Yes
Change in Mental Status: No
Current Postoperative Nausea & Vomiting: No
Anesthesia Complications: No
General Anesthetic Recall: No
Unplanned Admission: No
Post Op Hydration Adequate: Yes
[2025-02-28] MEDS: ROXICODONE 5 MG PO ×3 (07:24→20:47)
[2025-02-28 07:46] LABS: B.E. -4.0 mmol/L; HCO3 20.8 mmol/L (21-28); O2 Saturation % 98.0 % (94-98); PCO2 36 mmHg (32-35); PO2 149 mmHg (83-108); Potassium 4.4 mMOL/L (3.5-5.1); Sodium 135 mMOL/L (136-145)
--- NOTE | 2025-02-28 08:00 | PTCARENOTE ---
Patient received from caustic cresylate shift superintendent resting in bed, sleepy but arousable and appropriate. NST-ST via cm, SaO2 @ 100% on 2lnc. RIJ Cordis/[place]-Sb catheter, L radial arterial lines present - leveled, flushed, and calibrated w/good waveforms returned.
Epicardial V-wire to pulse generator set to backup rate VVI 30, no spikes noted. Mediastinal chest tubes x 2, Y-connected to one pleurevac - placed to -20cm suction w/no air leak appreciated. Montelongo catheter to gravity w/clear, yellow drainage. All
procdedural sites stable. @ bedside, both updated to plan of care for the day, in agreement. See work list for full assessment, intravenous infusions and titrations, and interventions performed.
[2025-02-28 08:05] LABS: Glucose - Point of Care 151 mg/dl (70-99)
[2025-02-28] MEDS: SODIUM BICARBONATE 25 MEQ IV (08:25)
[2025-02-28] MEDS: BACTROBAN 2% OINTMENT 1 APPLIC NASAL ×2 (08:25→20:48)
[2025-02-28] MEDS: LIDOCAINE 4% PATCH 1 PATCH TOPICAL (08:25)
[2025-02-28] MEDS: MAGNESIUM OXIDE 400 MG PO ×2 (08:26→20:47)
[2025-02-28] MEDS: SENOKOT 8.6 MG PO ×2 (08:26→20:47)
[2025-02-28] MEDS: NEURONTIN 100 MG PO ×3 (08:26→22:51)
[2025-02-28] MEDS: PACERONE 400 MG PO ×3 (08:26→22:52)
[2025-02-28] MEDS: VITAMIN B-12 100 MCG PO (08:26)
[2025-02-28] MEDS: PROTONIX 40 MG PO (08:26)
[2025-02-28] MEDS: LOW STRENGTH ASPIRIN 81 MG PO (08:27)
[2025-02-28] MEDS: VITAMIN D3 (cholecalciferol) 25 MCG PO (08:27)
--- NOTE | 2025-02-28 08:29 | W.PN.INTV ---
Today's Communication / Plan
Recommendations
Extubated and doing well, remains on low O2, weaning to off
N/V noted, symptomatic management
Further postop management per team
Encouraged OOB/PT, IS
Transfer to tele once off gtts, we will sign off upon transfer
Assessment
-
64-year-old female with previous history of aortic valve stenosis presenting for elective replacement. She had ongoing shortness of breath with exertion and chest tightness prior to admission. This has declined in the past 6 months. Underwent AVR
on 02/27/2025 and postoperatively transferred to CVICU for further management.
Severe aortic stenosis s/p AVR 02/27/25
Perioperative mechanical ventilation
Dyspnea on exertion
Postoperative anemia
Conditions present prior to admission
Rheumatoid arthritis involving multiple sites with positive rheumatoid factor
Type 2 diabetes
Hypertension
Hyperlipidemia
Mixed hyperlipidemia
Benign congenital leukopenia
Bronchiectasis
Laparoscopy x2 for Infertility
Cardiac Cath 01/26/2025
Teeth extraction
Plan
S/p AVR POD #2
Titrated off pressors per protocol
ECHO reviewed with normal function
PA catheter readings reviewed
Management of chest tubes per primary service
Pain control
RASS goal of 0 to -1
Intubated for procedure, extubated and doing well
ABG(s) reviewed
CXR with stable postop changes
Maintain supplement oxygen as needed
Prior history of pulmonary disease: bronchiectasis
Prior PFTs reviewed--moderate obstruction
Can add nebulizers if needed
Aspiration precautions
Encouraged incentive spirometry, OOB/ambulation/early mobility
Outpatient pulmonary FU recommended
Advance diet as tolerated
GI prophylaxis if indicated for mechanical ventilation >48 hours
Monitor critical I/O's
Montelongo/chest tube output
Hb/platelets postoperatively stable
Trend CBC for now
Can transfuse if indicated for Hb <7, plt <50 in surgical patients
DVT prophylaxis including SCDs
Insulin protocol initiated and ongoing
Transition to SQ/off as indicated per team
Diagnostic Data
Chest X-Ray:
CT Scan: CHEST 01/31/25- Chest: Stable appearance of chronic right lower lobe collapse with bronchiectasis and cystic change, likely sequelae of remote infection. No suspicious pulmonary nodules, areas of airspace disease, pleural effusions,
pericardial effusions or enlarged lymph nodes in the thorax. Origins of the great vessels from the aortic arch are patent.
Echo: 01/24/25- 1. Hyperdynamic left ventricular systolic function without regional wall motion abnormalities. LVEF 72%.
2. Mild concentric LVH.
3. Severe aortic stenosis. Peak/mean gradient 86/52 mmHg, KENIA 0.8 cm², DVI 0.26.
4. Mild aortic regurgitation. PHT 500 ms.
5. No prior study available for comparison.
[facility] 01/26/25- 1. Right dominant circulation with an anterior, low-lying origin of the RCA making it difficult to cannulate from a radial approach with no coronary artery disease in the right or left coronary trees.
2. Severe aortic valve stenosis on echocardiography.
3. Severe right subclavian/innominate artery tortuosity.
PFT's: 02/16/25- Spirometry pre bronchodilator: FVC was 2.41L / 80% predicted. FEV1 was 1.55L / 66% predicted. Ratio 64
Spirometry post bronchodilator: FVC was 2.55L / 85% predicted, 6% change. FEV1 was 1.64L / 69% predicted, 6% change. Ratio 64
Moderate obstruction. There's no significant bronchodilator response.
Reports and relevant images were personally reviewed.
Critical Care time 35 mins -- The patient is admitted for acute critical illness for the treatment of vital organ failure and/or prevention of further life-threatening conditions. Total care includes time spent in review of history, physical exam,
medications, hemodynamic/ventilator parameters, laboratory data, imaging and discussion with house staff, pharmacy, respiratory therapy, beam warper, and nursing.
Subjective Dataa
Subjective Data
Date of Service:
Date of Service: February 28, 2025
Chief Complaint: Bilingual Instructor Follow Up
Subjective:
Extubated and doing well, remains on low supplemental O2
N/V noted this AM
Objective Data
Data Reviewed
Vital Signs / I&O / Oxygen:
Vital Signs
Temp Pulse Resp BP Pulse Ox
99.5 F 103 21 109/58 100
02/28/25 08:00 02/28/25 08:26 02/28/25 08:00 02/28/25 08:26 02/28/25 08:10
Intake and Output
02/27/25 02/28/25 03/01/25
06:59 06:59 06:59
Intake Total 2947.4 / 2985.4 343.3 / 343.3
Output Total 1105 / 1145 90 / 90
Balance 1842.4 / 1840.4 253.3 / 253.3
SaO2 [SIMV] 100
SaO2 100
Nasal Cannula flow liters per 2
minute
Physical Exam
General: Comfortable and Other (NAD)
HEENT: Normocephalic, Anicteric and Moist Mucous Membranes
Cardiovascular: S1-S2 and Regular Rhythm
Respiratory: Clear, Non-Labored Respirations and Chest Tube
GI: Soft, Non Distended and Non Tender
Neurology: Awake, Alert, Oriented and No Motor Deficits
Skin: Warm, Dry and Good Color
Labs/Micro/Reports
Lab Data
02/28/25 03:08
02/28/25 03:08
Laboratory Results
02/27/25 02/27/25 02/28/25
11:54 11:57 07:36
PT 16.8 H
INR 1.35
APTT 33.8
pH 7.45 7.37
pCO2 37 H 36 H
pO2 153 H 149 H
HCO3 25.7 20.8 L
O2 Delivery Level
--- NOTE | 2025-02-28 08:49 | PN.DE.MGMTRT ---
Insulin Management
- -
02/28/2025: Diabetes Management Consult Follow up
64 year old female admitted 02/27 for OR - aortic valve replacement. PMH: HTN, Dyslipidemia, RA, T2DM on insulin and bronchiectasis with recently discovered symptomatic severe aortic stenosis. Symptoms predominantly with activity including shortness
of breath and chest tightness, escalating symptoms that were starting to occur at rest as well. Had noticed significant change in activity tolerance and symptomatology when compared to 6 months prior. Prior to admission was taking 500 mg metformin
in AM, Medtronic insulin pump with novolog insulin. A1C 8.2%, cr .6 eGFR > 60.
POD 1 s/p Aortic valve replacement. Pt is awake alert and oriented able to discuss diabetes care. at bedside very supportive, will bring pump and supplies with sensor for transition tomorrow.
Currently receiving critical care glycemic protocol insulin infusion requiring .1 to 3.6 units of insulin per hour. Will continue insulin infusion today and prepare to transition tomorrow.
Discussed with Nurse.
Will follow.
Diabetes History
- -
Type of Diabetes: 2 requiring insulin
Pre-Admission Diabetes Regimen
02/27/25 02/28/25
11:57 03:08
Creatinine 0.6 0.6
Lab Results
Hemoglobin A1c 8.2 % (4.0-5.9) H 02/16/25 12:43
Insulin Pump Settings
IP Diabetes Regimen
02/27/25 02/27/25 02/27/25
11:56 11:57 13:00
Glucose 143 H
POC Glucose 161 H 200 H
02/27/25 02/27/25 02/27/25
13:59 14:59 17:05
Glucose
POC Glucose 186 H 139 H 126 H
02/27/25 02/27/25 02/27/25
19:12 20:05 21:19
Glucose
POC Glucose 112 H 100 H 105 H
02/27/25 02/27/25 02/28/25
22:21 23:20 00:17
Glucose
POC Glucose 91 101 H 93
02/28/25 02/28/25 02/28/25
02:09 03:08 04:11
Glucose 103 H
POC Glucose 116 H 99
02/28/25 02/28/25 02/28/25
05:55 07:03 08:02
Glucose
POC Glucose 79 138 H 151 H
Patient Education
[2025-02-28 09:04] LABS: Glucose - Point of Care 156 mg/dl (70-99)
[2025-02-28 10:02] LABS: Glucose - Point of Care 147 mg/dl (70-99)
[2025-02-28] MEDS: ZOFRAN 4 MG IV (10:12)
[2025-02-28] MEDS: NOVOLOG FLEXPEN SC ×2 (10:24→15:22)
[2025-02-28] MEDS: FLEXERIL 5 MG PO (10:38)
[2025-02-28] MEDS: TORADOL 15 MG IV (11:15)
[2025-02-28] MEDS: NSS IV (11:19)
--- NOTE | 2025-02-28 12:00 | PTCARENOTE ---
Assessment stable. Patient resting comfortably with recent pain medication administration. [place]-Sb catheter d/c'd as ordered, patient tolerated well. Resting comfortably.
[2025-02-28 12:04] LABS: Glucose - Point of Care 104 mg/dl (70-99)
[2025-02-28] MEDS: REGLAN 10 MG IV (13:20)
--- NOTE | 2025-02-28 13:24 | CM ---
Chart reviewed. Patient is independent of ADLS, lives with her in a 2 STH, 1 JERROD through the front and 4 JERROD with the deck, 0 DME. Plan is for the patient to return home with CT Transitional RN. CM to follow
[2025-02-28] MEDS: FERRLECIT 110 MG IV (14:05)
[2025-02-28] MEDS: ALBUMIN 5% 250 IV (15:14)
[2025-02-28 15:30] LABS: Hematocrit 31.6 % (37.0-47.0); Hemoglobin 10.2 g/dL (12.0-16.0); Mean Corp Hgb Conc. 32.3 g/dL (33.0-37.0); Mean Corpuscular Volume 86.1 fL (81.0-99.0); Red Cell Dist. Width 15.4 % (11.5-14.5)
--- NOTE | 2025-02-28 15:44 | W.PN.CD ---
Today's Communication / Plan
-
reinitiate BB as tolerated
tele stable, can dec amio dose soon
Impression / Plan
-
64 y/o female (Dr. Fragoso patient) with hypertension, dyslipidemia, DM on insulin, RA, and bronchiectasis with recently discovered symptomatic severe aortic stenosis and she is now s/p AVR.
Severe aortic stenosis:
-now s/p AVR (23 mm inspiris) and LAAL with Dr. Weaver 02/27/25
-extubated on RA
-off levophed
-EF normal on OR RUCHI
-lungs sounds decreased at bases, encourage IS
-post-op CXR with clear lungs
-SR on tele/EKG, one single 3 beat run NSVT; amio at 400 TID, can likely back off
-CT's, Montelongo, pacer wire in place
-post-op anemia noted, s/p 1U pRBCs with appropriate response
-ASA, BB ordered
Hypertension:
-monitor post-op
-currently normotensive on BB
DMII:
-monitor glucose closely post-op
HLD:
-on statin as OP - resume when able
Previous data:
Echocardiogram 01/24/25: Hyperdynamic left ventricular systolic function without regional wall motion abnormalities. LVEF 72%. Mild concentric LVH. Severe aortic stenosis. Peak/mean gradient 86/52 mmHg, KENIA 0.8 cm, DVI 0.26. Mild aortic
regurgitation. PHT 500 ms.
Cardiac catheterization on 01/26/2025 revealed: Right dominant circulation with an anterior, low-lying origin of the RCA making it difficult to cannulate from a radial approach with no coronary artery disease in the right or left coronary trees.
Severe aortic valve stenosis on echocardiography. Severe right subclavian/innominate artery tortuosity.�
Physical Exam
Vital Signs/Labs
Vital Signs
Temp Pulse Resp BP Pulse Ox
37.1 C 103 21 101/50 100
02/28/25 12:00 02/28/25 15:15 02/28/25 15:15 02/28/25 15:13 02/28/25 14:00
02/27/25 02/28/25 03/01/25
06:59 06:59 06:59
Actual Weight 73.1 kg 75.7 kg
02/28/25 15:04
02/28/25 03:08
PT 16.8 Sec (11.4-14.6) H 02/27/25 11:57
INR 1.35 02/27/25 11:57
APTT 33.8 Sec (23.4-35.0) 02/27/25 11:57
Magnesium 1.7 mg/dl (1.6-2.3) 02/28/25 03:08
Physical Exam
Constitutional: Comfortable
Cardiovascular: Rhythm & rate is regular
Respiratory: Respiratory effort normal
Neuro/Psych: AO x 3
Data Reviewed
-
Date of Service: February 28, 2025
Medical Decision Making: Reviewed Test Results
EKG: Tracing Personally Visualized and interpreted
Labs: Labs Reviewed by me
--- NOTE | 2025-02-28 16:00 | PTCARENOTE ---
Patient assisted back to bed. Assessment unchanged.
[2025-02-28 16:02] LABS: Glucose - Point of Care 105 mg/dl (70-99)
[2025-02-28 16:04] LABS: Glucose - Point of Care 145 mg/dl (70-99)
[2025-02-28 16:06] LABS: Platelet Count 73 10^3/uL (130-400)
[2025-02-28] MEDS: NOVOLOG FLEXPEN 4 UNITS SC (16:47)
[2025-02-28 18:03] LABS: Glucose - Point of Care 167 mg/dl (70-99)
--- NOTE | 2025-02-28 20:30 | PTCARENOTE ---
Report received from REBA Gonzales. Walking rounds done. Pt assessed. VS done. Pt awake, alert, oriented x 4. Speech clear. Equal strength x 4. Pt on 2L/NC. Sats 99-100%. BBS present;. Decreased to B bases. CDB and IS encouraged. IS peak 500 mls. C/O
pain to sternum. Roxicodone 5 mg po given for pain. Audible heart tones. Faint rub present. Pt in SR-ST, rate 90-100's. BP 100's/70-80's. Off levophed gtt. +2 palpable radial and DP pulses. V wire attached to temp PM. VVI rate 30/MA 10/sens 0.8.
Mediastinal CT x 2, both to -20 cm suction. For wound assessments, see flowsheet. Belly soft, nontender. Normoactive bs x 4. Passing flatus. Poor appetite. Montelongo catheter draining clear, yellow urine. Q 1 hr UO recorded. PA at bedside to examine pt.
Glycemic protocol maintained. Son at bedside and updated on pt status. Ongoing plan of care.
[2025-02-28 20:31] LABS: Glucose - Point of Care 137 mg/dl (70-99)
[2025-02-28] MEDS: REMOVE LIDOCAINE PATCH 1 PATCH REMOVE (20:47)
[2025-02-28 22:46] LABS: Glucose - Point of Care 110 mg/dl (70-99)
[2025-02-28] MEDS: CRESTOR 20 MG PO (22:51)
[2025-02-28 23:49] LABS: Glucose - Point of Care 100 mg/dl (70-99)
[2025-03-01] VITALS (28 sets, daily range): BP systolic 79–110; BP diastolic 49–71; PULSE 105; O2SAT 98–99; BMI 30.7
[2025-03-01] MEDS: LR 250 IV (00:23)
--- NOTE | 2025-03-01 00:30 | PTCARENOTE ---
Pt with decreased UO at 2300 and 0000. PA made aware. LR 250 mls bolus given per order. T 100.1. PA made aware. CDB encouraged. Pt given CHG bath, dressing change done to CTs and pacing wire site per protocol. Repositioned in bed. Ongoing plan of
care.
[2025-03-01 02:25] LABS: Glucose - Point of Care 62 mg/dl (70-99)
[2025-03-01] MEDS: DEXTROSE 50% SYRINGE 12.5 GRAMS IV (02:28)
[2025-03-01 02:47] LABS: Glucose - Point of Care 93 mg/dl (70-99)
--- NOTE | 2025-03-01 03:00 | PTCARENOTE ---
Glucose decreased to 62 at 0225. Asymptomatic. 12.5G D50 IV given at 0228. Repeat glucose in 15 min 93. Glycemic protocol restarted at 0245 at 0.4 units/hr. Pt now q 1 hr accuchecks.
[2025-03-01 03:52] LABS: Glucose - Point of Care 80 mg/dl (70-99)
[2025-03-01] MEDS: ROXICODONE 5 MG PO ×2 (04:14→08:54)
--- NOTE | 2025-03-01 04:23 | PTCARENOTE ---
Labs drawn and sent. Pt c/o moderate sternal pain. Roxicodone 5 mg given. Pt repositioned in bed. Remains in ST-SR, 90-100's. Sats 99% on 2L/NC. Glucose 80. Insulin gtt at 0.2 units/hr. Q 1 hr checks remain.
[2025-03-01 04:32] LABS: Hematocrit 25.4 % (37.0-47.0); Hemoglobin 8.4 g/dL (12.0-16.0); Mean Corp Hgb Conc. 33.1 g/dL (33.0-37.0); Mean Corpuscular Volume 87.6 fL (81.0-99.0); Red Cell Dist. Width 15.3 % (11.5-14.5)
[2025-03-01 04:46] LABS: Blood Urea Nitrogen 16 mg/dl (7-17); Calcium 8.5 mg/dl (8.4-10.2); Carbon Dioxide 29 mmol/L (22-30); Chloride 108 mmol/L (98-107); Estimated Creatinine Clearance 94 ml/min; Glucose 85 mg/dl (70-99); Magnesium 2.0 mg/dl (1.6-2.3); Potassium 4.2 mmol/L (3.5-5.1); Sodium 137 mmol/L (135-145); eGFR > 60.00
[2025-03-01 05:10] LABS: Glucose - Point of Care 76 mg/dl (70-99)
[2025-03-01 06:03] LABS: Glucose - Point of Care 80 mg/dl (70-99)
[2025-03-01] MEDS: TYLENOL 975 MG PO ×3 (06:12→21:57)
[2025-03-01 06:14] LABS: Platelet Count 64 10^3/uL (130-400)
--- NOTE | 2025-03-01 06:14 | W.PN.CT ---
Today's Communication / Plan
-
-pod #2
-drips: insulin. Levo is off
-s/p total 2 pRBCs postop for Hg 7.6. Hg today 8.4
-follow platelets- 64K today (73K on 02/28, 97K on 02/27, and 185 preop)
-CTs outputs: 2 meds 20/50 in 12/24 hrs
-maintain pw
-low UO, improved with 250 LR- follow
-maintain Montelongo
-started on Midodrine for hypotension, got 250 LR, 250 Albumin and blood on 02/28. Lopressor is on hold- monitor
-Amio increased d/t tachycardia (sinus) high 90s-low 100s
-current meds (ASA, Crestor, Amio 400 tid, Midodrine 5 tid, iv iron, Mg, Gabapentin, Protonix)
-encourage IS (500-750 so far), OOB
Assessment / Plan
-
Assessment:
-S/P Standard Sternotomy/Aortic valve replacement (23 mm Inspiris Resilia)/Left atrial appendage ligation (35 mm atriclip device), by Dr. Weaver, 02/27/25, pod#2
-Severe
-Moderate MR
-LVEF 65-70% per intraop RUCHI
-Rheumatoid arthritis
-Type 2 diabetes (hgb A1C 8.2)
-Hypertension
-Hyperlipidemia
-Bronchiectasis
-Congenital leukopenia
-S/P Laparoscopy x 2 (06/2008, 06/2009)
-S/p Cardiac cath, 01/26/25
-Acute postop blood loss/Anemia (transfused 1u PRBC on 02/27 and 1u PRBC on 02/28)
-Acute postop hypotension - got IVF, started on Midodrine
-Acute postop thrombocytopenia (stable, no active bleed)
-Acute postop atelectasis
-Acute postop hypovolemia with subsequent hypervolemia
-Suspected acute postop pericarditis
Discussed patient care with: Nursing and Care Team
Subjective
Procedure
S/P Standard Sternotomy/Aortic valve replacement (23 mm Inspiris Resilia)/Left atrial appendage ligation (35 mm atriclip device), by Dr. Weaver, 02/27/25
-
Date of Service: February 28, 2025
Objective Data
-
Lab Results
02/28/25 15:04
02/28/25 03:08
PT 16.8 Sec (11.4-14.6) H 02/27/25 11:57
INR 1.35 02/27/25 11:57
APTT 33.8 Sec (23.4-35.0) 02/27/25 11:57
Vital Signs
Vital Signs
Temp Pulse Resp BP Pulse Ox
98.8 F 103 24 108/64 98
02/28/25 20:00 02/28/25 20:30 02/28/25 20:30 02/28/25 20:00 02/28/25 20:00
CT Intake/Output/Weight
02/28/25 02/28/25 03/01/25
06:59 18:59 06:59
Intake Total 1130.4 / 2985.4 1698.9 / 1738.9 40 / 1738.9
Output Total 525 / 1145 435 / 505 70 / 505
Balance 605.4 / 1840.4 1263.9 / 1233.9 -30 / 1233.9
SaO2: 98
Physical Exam
-
General: Awake and AOx3
Cardiovascular: Regular rate & rhythm, No Murmurs and No Rub
Respiratory: Decreased Breath Sounds
Sternum: Stable
Incision: Clean, Dry and Intact
Extremities: Edema +1
Abdomen: soft, nontender, nondistended, + bowel sounds
Data Reviewed
-
Lab Results: Results Reviewed
Medications: Active Meds Reviewed
Chest X-Ray: Report Reviewed and Image Reviewed
ECG: Report Reviewed and Image Reviewed
[2025-03-01 07:06] LABS: Glucose - Point of Care 82 mg/dl (70-99)
--- NOTE | 2025-03-01 07:34 | W.PN.INTV ---
Today's Communication / Plan
Recommendations
Doing well, stable on RA, not on pressors
Insulin gtt weaned to off
Tachycardia noted, defer to team for management
Chest tube discontinued
Encouraged OOB/PT, IS
Transfer to tele per team, we will sign off upon transfer
Assessment
-
64-year-old female with previous history of aortic valve stenosis presenting for elective replacement. She had ongoing shortness of breath with exertion and chest tightness prior to admission. This has declined in the past 6 months. Underwent AVR
on 02/27/2025 and postoperatively transferred to CVICU for further management.
Severe aortic stenosis s/p AVR 02/27/25
Perioperative mechanical ventilation
Dyspnea on exertion
Postoperative anemia
Conditions present prior to admission
Rheumatoid arthritis involving multiple sites with positive rheumatoid factor
Type 2 diabetes
Hypertension
Hyperlipidemia
Mixed hyperlipidemia
Benign congenital leukopenia
Bronchiectasis
Laparoscopy x2 for Infertility
Cardiac Cath 01/26/2025
Teeth extraction
Plan
S/p AVR POD #3
Titrated off pressors per protocol
ECHO reviewed with normal function
PA catheter discontinued
Management of chest tubes per primary service--discontinued today
Pain control
RASS goal of 0 to -1
Intubated for procedure, extubated and doing well
ABG(s) reviewed
CXR with stable postop changes
Maintain supplement oxygen as needed
Prior history of pulmonary disease: bronchiectasis
Prior PFTs reviewed--moderate obstruction
Can add nebulizers if needed
Aspiration precautions
Encouraged incentive spirometry, OOB/ambulation/early mobility
Outpatient pulmonary FU recommended
Advance diet as tolerated
GI prophylaxis if indicated for mechanical ventilation >48 hours
Monitor critical I/O's
Montelongo/chest tube output
Hb/platelets postoperatively stable
Trend CBC for now
Can transfuse if indicated for Hb <7, plt <50 in surgical patients
DVT prophylaxis including SCDs
Insulin protocol discontinued
Diagnostic Data
Chest X-Ray:
CT Scan: CHEST 01/31/25- Chest: Stable appearance of chronic right lower lobe collapse with bronchiectasis and cystic change, likely sequelae of remote infection. No suspicious pulmonary nodules, areas of airspace disease, pleural effusions,
pericardial effusions or enlarged lymph nodes in the thorax. Origins of the great vessels from the aortic arch are patent.
Echo: 01/24/25- . Hyperdynamic left ventricular systolic function without regional wall motion abnormalities. LVEF 72%.
2. Mild concentric LVH.
3. Severe aortic stenosis. Peak/mean gradient 86/52 mmHg, KENIA 0.8 cm², DVI 0.26.
4. Mild aortic regurgitation. PHT 500 ms.
5. No prior study available for comparison.
C 01/26/25. Right dominant circulation with an anterior, low-lying origin of the RCA making it difficult to cannulate from a radial approach with no coronary artery disease in the right or left coronary trees.
2. Severe aortic valve stenosis on echocardiography.
3. Severe right subclavian/innominate artery tortuosity.
PFT's: 02/16/25- Spirometry pre bronchodilator: FVC was 2.41L / 80% predicted. FEV1 was 1.55L / 66% predicted. Ratio 64
Spirometry post bronchodilator: FVC was 2.55L / 85% predicted, 6% change. FEV1 was 1.64L / 69% predicted, 6% change. Ratio 64
Moderate obstruction. There's no significant bronchodilator response.
Reports and relevant images were personally reviewed.
Critical Care time 31 mins -- The patient is admitted for acute critical illness for the treatment of vital organ failure and/or prevention of further life-threatening conditions. Total care includes time spent in review of history, physical exam,
medications, hemodynamic/ventilator parameters, laboratory data, imaging and discussion with house staff, pharmacy, respiratory therapy, punchboard stuffer, and nursing.
Subjective Dataa
Subjective Data
Date of Service:
Date of Service: March 01, 2025
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
Subjective:
No new events, stable on RA
Chest tube discontinued
Tachycardia noted
Objective Data
Data Reviewed
Vital Signs / I&O / Oxygen:
Vital Signs
Temp Pulse Resp BP Pulse Ox
99.1 F 104 22 101/58 100
03/01/25 04:00 03/01/25 06:02 03/01/25 06:02 03/01/25 06:02 03/01/25 06:02
Intake and Output
02/28/25 03/01/25 03/02/25
06:59 06:59 06:59
Intake Total 2947.4 / 2985.4 2087.0 / 2087.0
Output Total 1105 / 1145 755 / 755
Balance 1842.4 / 1840.4 1332.0 / 1332.0
SaO2 [SIMV] 100
SaO2 100
Nasal Cannula flow liters per 2
minute
Physical Exam
General: Comfortable and Other (NAD)
HEENT: Normocephalic, Anicteric and Moist Mucous Membranes
Cardiovascular: S1-S2 and Regular Rhythm
Respiratory: Clear, Non-Labored Respirations and Chest Tube
GI: Soft, Non Distended and Non Tender
Neurology: Awake, Alert, Oriented and No Motor Deficits
Skin: Warm, Dry and Good Color
Labs/Micro/Reports
Lab Data
03/01/25 04:07
03/01/25 04:07
Laboratory Results
02/28/25
07:36
pH 7.37
pCO2 36 H
pO2 149 H
HCO3 20.8 L
O2 Delivery Level
--- NOTE | 2025-03-01 07:53 | PN.DE.MGMTRT ---
Insulin Management
- -
03/01/2025: Diabetes Management Consult Follow up
64 year old female admitted 02/27 for OR - aortic valve replacement. PMH: HTN, Dyslipidemia, RA, T2DM on insulin and bronchiectasis with recently discovered symptomatic severe aortic stenosis. Symptoms predominantly with activity including shortness
of breath and chest tightness, escalating symptoms that were starting to occur at rest as well. Had noticed significant change in activity tolerance and symptomatology when compared to 6 months prior. Prior to admission was taking 500 mg metformin
in AM, Medtronic insulin pump with novolog insulin. A1C 8.2%, cr .6 eGFR > 60.
POD 2 s/p Aortic valve replacement. Pt is awake alert and oriented out of bed in chair, able to discuss diabetes care. at bedside very helpful and supportive.
Currently receiving critical care glycemic protocol insulin infusion requiring .1 to 3.6 units of insulin per hour. Glucose 62 @ 2:24, treated with dextrose, infusion resumed. Resumed Medtronic insulin pump at 10:30am. Patient uses extended wear
infusion set, humalog insulin and the Medtronic Guardian Sensor. New sensor started by , insulin pump infusing at basal rate. Critical Care Glycemic protocol to be stopped at 11:30.
Insulin pump settings as follows:
Basal rate .8 every hour, 24 hour total 19.2 units.
I:CHO ratio 1:8
Sensitivity 1:45
Active insulin 2 hours.
Target glucose 100 to 120
Explained policy to patient accucheks will be checked by nurse with hospital device before each meal and HS. Patient will complete pump bedside worksheet.
Discussed with Nurse.
Will follow.
Diabetes History
- -
Type of Diabetes: 2 requiring insulin
Pre-Admission Diabetes Regimen
03/01/25
04:07
Creatinine 0.6
Lab Results
Hemoglobin A1c 8.2 % (4.0-5.9) H 02/16/25 12:43
Insulin Pump Settings
IP Diabetes Regimen
02/28/25 02/28/25 02/28/25
08:02 09:03 10:01
Glucose
POC Glucose 151 H 156 H 147 H
02/28/25 02/28/25 02/28/25
12:02 14:03 16:02
Glucose
POC Glucose 104 H 105 H 145 H
02/28/25 02/28/25 02/28/25
18:01 20:30 22:45
Glucose
POC Glucose 167 H 137 H 110 H
02/28/25 03/01/25 03/01/25
23:47 02:24 02:46
Glucose
POC Glucose 100 H 62 L 93
03/01/25 03/01/25 03/01/25
03:51 04:07 05:09
Glucose 85
POC Glucose 80 76
03/01/25 03/01/25
06:01 07:05
Glucose
POC Glucose 80 82
Meal type: Dinner
Meal type: Lunch
Meal type: Breakfast
Amount consumed: 30%
Amount consumed: Patient refused
Amount consumed: 10%
Patient Education
[2025-03-01 08:52] LABS: Glucose - Point of Care 82 mg/dl (70-99)
[2025-03-01] MEDS: SENOKOT 8.6 MG PO ×2 (08:53→20:47)
[2025-03-01] MEDS: NEURONTIN 100 MG PO ×3 (08:53→21:56)
[2025-03-01] MEDS: MAGNESIUM OXIDE 400 MG PO ×2 (08:53→20:47)
[2025-03-01] MEDS: PROTONIX 40 MG PO (08:53)
[2025-03-01] MEDS: VITAMIN B-12 100 MCG PO (08:53)
[2025-03-01] MEDS: PACERONE 400 MG PO ×3 (08:53→21:56)
[2025-03-01] MEDS: NOVOLOG FLEXPEN SC ×2 (08:53→12:07)
[2025-03-01] MEDS: BACTROBAN 2% OINTMENT 1 APPLIC NASAL ×2 (08:54→20:48)
[2025-03-01] MEDS: LIDOCAINE 4% PATCH 1 PATCH TOPICAL (08:54)
[2025-03-01] MEDS: VITAMIN D3 (cholecalciferol) 25 MCG PO (08:54)
--- NOTE | 2025-03-01 08:55 | PTCARENOTE ---
Assumed care of patient at 0700. Pt is awake, alert, and oriented. Pt with complaints of pain, PRN Roxicodone administered per order. Pt currently ST with HR 103. BP 90/63 MAP 73. Pulse oximetry 97% on room air. Mediastinal chest tubes x2 in place,
no sign of air leak or crepitus. Pt tolerating PO diet. Montelongo catheter in place draining yellow urine. Montelongo care completed per order. Midsternal incision approximated and LYNN. Right IJ cordis intact. Pt currently assisted OOB to chair.
[2025-03-01] MEDS: ZOFRAN 4 MG IV (08:58)
--- NOTE | 2025-03-01 10:34 | CM ---
Chart reviewed. Patient OOB sitting in the chair, at bedside. Patient is independent of ADLS, lives with her in 2 STH, 1 JERROD through the front, 4 JERROD through the deck, 0 DME. Plan is for the patient to return home with CT
Transitional RN. CM to follow
[2025-03-01] MEDS: FLEXERIL 5 MG PO ×2 (11:11→20:47)
[2025-03-01 11:42] LABS: Glucose - Point of Care 169 mg/dl (70-99)
[2025-03-01] MEDS: NSS 500 IV (11:48)
[2025-03-01] MEDS: PT'S OWN INSULIN PUMP - HumaLOG SC ×3 (12:06→21:58)
--- NOTE | 2025-03-01 12:43 | W.PN.CD ---
Today's Communication / Plan
-
Routine post operative management.
Monitor anemia/thrombocytopenia.
Colchicine 0.6 mg PO BID x 3 months for pericarditis.
Repeat echocardiogram tomorrow.
Furosemide 40 mg IV x1 and monitor.
Incentive spirometry.
Ambulate.
Pain/chest tube management per CT surgery.
Impression / Plan
-
Impression/Plan: 64 y/o female (patient of Dr. Fragoso) with hypertension, dyslipidemia, IDDM2, RA not on DMARDs, and RLL bronchiectasis and symptomatic severe aortic stenosis admitted for elective SAVR.
#Severe aortic stenosis:
-Chronic, progressive.
-s/p #23 Murillo Inspiris Resilia AVR with Dr. Weaver, 02/27/25.
-LVEF normal on OR RUCHI.
-SR on tele/EKG, one single 3 beat run NSVT; amio at 400 TID.
-Post-op anemia noted, likely real blood loss but also significant dilution (> 5 kg increase in weight).
-Continue aspirin, rosuvastatin.
-Metoprolol on hold due to relative hypotension.
-Furosemide 40 mg IV x1 and monitor.
#Abnormal EKG/pericarditis
-Acute.
-EKG shows JERROD (lateral limb leads, anterolateral precordium) with WI depressions.
-She endorses pericarditic symptoms. Exam reveals an anterior rub.
-Preop cath showed no CAD.
-Start colchicine 0.6 mg PO BID x 3 months.
-The patient would benefit from high dose aspirin taper, but I would like to see her platelets recover first.
-Repeat echocardiogram tomorrow.
#Anemia/Thrombocytopenia
-Anemia is relatively chronic.
-No transfusion at this time.
-Thrombocytopenia is relatively acute - possibly post-surgical drop, monitor for HIT.
-Both drops are likely related to volume/dilution.
-Monitor with diuresis.
#Hypertension:
-Chronic, currently normotensive to relatively hypotensive.
-Stable on midodrine.
#IDDM2:
-Chronic, stable.
-SSI per protocol.
#HLD:
-Chronic, stable.
-Continue rosuvastatin.
Subjective/Interval History:
Norepinephrine weaned off last night.
Weight is up 2.8 kg from yesterday, 5.4 kg from admission.
HR stable around ~ 100.
Some hypotension yesterday morning, none since.
Midodrine started yesterday.
CI = 3.37 L/min/m2 prior to PAC removal.
SaO2 = 94% on RA.
Transfused (*) for anemia 8.1 --> 7.6* --> 8.6* --> 10.2 --> 8.4.
Platelets previously normal, now 64k.
EKG shows anterior JERROD.
Patient describes chest pain that worsens with recumbent position, improved with sitting up.
DATA:
TTE, 01/24/2025:
SUMMARY
1. Hyperdynamic left ventricular systolic function without regional wall motion abnormalities. LVEF 72%.
2. Mild concentric LVH.
3. Severe aortic stenosis. Peak/mean gradient 86/52 mmHg, KENIA 0.8 cm², DVI 0.26.
4. Mild aortic regurgitation. PHT 500 ms.
5. No prior study available for comparison.
Cardiac Catheterization, 01/26/2025:
CONCLUSIONS
1. Right dominant circulation with an anterior, low-lying origin of the RCA making it difficult to cannulate from a radial approach with no coronary artery disease in the right or left coronary trees.
2. Severe aortic valve stenosis on echocardiography.
3. Severe right subclavian/innominate artery tortuosity.
SAVR, 02/27/2025:
Procedure(s) Performed:
1. Standard Sternotomy with Aortic and Right Atrial Cannulation.
2. Aortic valve replacement 23 mm Inspiris Resilia.
3. Left atrial appendage ligation with 35 mm atriclip device.
3. Transesophageal echocardiography.
4. Placement of Temporary Ventricular Pacing Wires.
Intraoperative RUCHI, 02/27/2025:
CONCLUSIONS
Hypertrophied left ventricle with normal systolic function and no regional wall
motion abnormalities. LVEF 65-70%.
Normal right ventricular systolic function.
Normal tricuspid valve.
Trace to mild mitral regurgitation.
Moderate to severe aortic stenosis with moderate regurgitation.
Normal left atrial appendage.
Grossly normal thoracic aorta.
POST OPERATIVE FINDINGS
S/P AVR with size 23 bioprosthetic valve; BOGDAN exclusion
The aortic valve is well-seated with no paravalvular leak. The mean gradient is
10 mmHg with a cardiac index of 3 L/min/meters sq. The left atrial appendage is
no longer present with color Doppler confirming the absence of flow. Otherwise
unchanged exam.
Physical Exam
Vital Signs/Labs
Vital Signs
Temp Pulse Resp BP Pulse Ox
37.2 C 111 18 110/71 94
03/01/25 11:17 03/01/25 11:17 03/01/25 11:17 03/01/25 10:47 03/01/25 11:17
02/28/25 03/01/25 03/02/25
11:59 11:59 11:59
Actual Weight 75.7 kg 78.5 kg
03/01/25 04:07
03/01/25 04:07
PT 16.8 Sec (11.4-14.6) H 02/27/25 11:57
INR 1.35 02/27/25 11:57
APTT 33.8 Sec (23.4-35.0) 02/27/25 11:57
Magnesium 2.0 mg/dl (1.6-2.3) 03/01/25 04:07
Physical Exam
Constitutional: No acute distress and Comfortable
EENT: Anicteric and Moist mucous membranes
Cardiovascular: Rhythm & rate is regular, Pedal edema is absent, JVD pressure is normal, Systolic murmur absent, Diastolic murmur absent, S1S2 is normal and Rub present
Respiratory: Respiratory effort normal, Lungs clear to auscul., Wheeze Absent, Crackles Absent and Rhonchi Absent
GI: Soft, Distention absent, Flat, Non tender and Normal bowel sounds
Neuro/Psych: AO x 3
Data Reviewed
-
Date of Service: March 01, 2025
Medical Decision Making: Reviewed Test Results, Independent Historian Assessment and Test Interpretation
EKG: Tracing Personally Visualized and interpreted and Report Reviewed by me
Echo: Tracing Personally Visualized and interpreted and Report Reviewed by me
X-Ray/CT/US/MRI/NUC/PET: Image Personally Visualized and interpreted and Report Reviewed by me
Medical Tests (PFT, Pathology etc): Image Personally Visualized and interpreted and Report Reviewed by me
Labs: Labs Reviewed by me
Old Records: Reviewed
--- NOTE | 2025-03-01 13:15 | PTCARENOTE ---
Mediastinal chest tubes and Montelongo catheter d/c'd per order. V wire insulated. Insulin gtt d/c'd per order, pt transitioned by Stefany Raymond to own Insulin pump. Pt tolerated working with cardiac rehab this morning. Currently pt ST with HR 124. BP
105/63 MAP 71. Pulse oximetry 97% on room air.
[2025-03-01] MEDS: FERRLECIT 110 MG IV (13:36)
[2025-03-01] MEDS: COLCHICINE 0.3 MG PO (13:37)
[2025-03-01 14:08] LABS: Glucose - Point of Care 123 mg/dl (70-99)
[2025-03-01] MEDS: PT'S OWN INSULIN PUMP - HumaLOG 3.7 UNIT SC (14:22)
[2025-03-01] MEDS: CORDARONE 103 MG IV (14:54)
--- NOTE | 2025-03-01 15:38 | PTCARENOTE ---
Pt became increasingly tachy. EKG completed, pt ST with HR 130. BP 93/54 MAP 66. Amio bolus given per order. HR now improved to 103.
[2025-03-01 17:35] LABS: Glucose - Point of Care 172 mg/dl (70-99)
[2025-03-01] MEDS: PT'S OWN INSULIN PUMP - HumaLOG 2 UNIT SC (17:40)
--- NOTE | 2025-03-01 20:00 | PTCARENOTE ---
assumed care of patient at 1900. Patient alert and oriented, follows all commands, moves all extremities. Sinus tacy on monitor, BP stable, 100.7 temp. lungs clear and diminished at bases. surgical sites all clean, open to air. Chest tube
dressing CDI. temp pacer off on shelve, V wires insolated, Medications given, voiding in bathroom clesar yellow urine. Call light within reach. See workflow for assessment details,.
[2025-03-01] MEDS: TORADOL 15 MG IV (20:52)
[2025-03-01] MEDS: REMOVE LIDOCAINE PATCH 1 PATCH REMOVE (21:55)
[2025-03-01 21:56] LABS: Glucose - Point of Care 143 mg/dl (70-99)
[2025-03-01] MEDS: CRESTOR 20 MG PO (21:56)
--- NOTE | 2025-03-01 22:24 | PTCARENOTE ---
2200, patient reassessed, pain better 2/10. medications given as scheduled. call light within reached.
[2025-03-02] VITALS (35 sets, daily range): BP systolic 71–155; BP diastolic 51–97; BMI 30.7
[2025-03-02] MEDS: LEVOPHED 250 IV (01:38)
--- NOTE | 2025-03-02 03:48 | PTCARENOTE ---
Patient ambulated to bathroom. Voids, on 2 of Levophed to keep MAP greater the 65 per provider,.BP 98/64
Room air. check workflow for more deail assessment data
[2025-03-02 03:49] LABS: Hematocrit 26.6 % (37.0-47.0); Hemoglobin 8.8 g/dL (12.0-16.0); Mean Corp Hgb Conc. 33.1 g/dL (33.0-37.0); Mean Corpuscular Volume 87.8 fL (81.0-99.0); Platelet Count 78 10^3/uL (130-400); Red Cell Dist. Width 15.1 % (11.5-14.5)
[2025-03-02 04:09] LABS: Blood Urea Nitrogen 19 mg/dl (7-17); Calcium 8.1 mg/dl (8.4-10.2); Carbon Dioxide 29 mmol/L (22-30); Chloride 105 mmol/L (98-107); Estimated Creatinine Clearance 71 ml/min; Glucose 107 mg/dl (70-99); Magnesium 2.0 mg/dl (1.6-2.3); Sodium 133 mmol/L (135-145); eGFR > 60.00
[2025-03-02 04:14] LABS: Potassium 4.2 mmol/L (3.5-5.1)
[2025-03-02] MEDS: TYLENOL 975 MG PO ×3 (05:06→21:29)
--- NOTE | 2025-03-02 05:07 | W.PN.CT ---
Today's Communication / Plan
-
-pod #3
-looks and feels better overall, denies dizziness, had some mild nausea last night
-remains hypotensive, suspected vasoplegia. Holding BB. Sbp high 70s, map <65 overnight - low-dose Levo 1-2 overnight. Midodrine was increased to 10 tid
-gave Midodrine at 5 am and turned Levo off at 6 am
-s/p 2 pRBCs, IVFs postop.
-follow Hg stable - 8.8 today (8.4 on 03/01)
-follow platelets - 78K today (64K 03/01, 73K on 02/28, 97K on 02/27, and 185 preop). HIT panel sent out on 03/01. Holding ASA
-Echo today for abnormal ECG/suspected pericarditis/+rub. Started on Colchicine
-Tm 100.7, nl wbc. Needs encouragement with IS (mostly 500s)
-wt is up from 161 preop to 173 on 03/01- ? gentle diuresis with help of Midodrine +/- Levo
-current meds (Crestor, Amio 400 tid, Colchicine, Midodrine 5 tid, iv iron, Mg, Gabapentin, Protonix)
-maintain Cordis, pw
-encourage OOB
Assessment / Plan
-
Assessment:
-S/P Standard Sternotomy/Aortic valve replacement (23 mm Inspiris Resilia)/Left atrial appendage ligation (35 mm atriclip device), by Dr. Weaver, 02/27/25, pod#3
-Severe
-Moderate MR
-LVEF 65-70% per intraop RUCHI
-Preop cath showed no CAD
-Rheumatoid arthritis
-Type 2 diabetes (hgb A1C 8.2)
-Hypertension
-Hyperlipidemia
-Bronchiectasis RLL
-Congenital leukopenia
-S/P Laparoscopy x 2 (06/2008, 06/2009)
-S/p Cardiac cath, 01/26/25
-Acute postop blood loss/Anemia (transfused 1u PRBC on 02/27 and 1u PRBC on 02/28)
-Acute postop hypotension, suspected vasoplegia - got IVF, started on Midodrine
-Acute postop thrombocytopenia (no active bleed)- HIT panel pending
-Acute postop atelectasis
-Acute postop hypovolemia with subsequent hypervolemia
-3 beat run NSVT- Amio was increased to 400 TID.
-Suspected acute postop pericarditis, + rub/ Abnormal ECG- tx with Colchicine
-Acute postop hyponatremia
Discussed patient care with: Nursing and Care Team
Subjective
Procedure
S/P Standard Sternotomy/Aortic valve replacement (23 mm Inspiris Resilia)/Left atrial appendage ligation (35 mm atriclip device), by Dr. Weaver, 02/27/25
-
Date of Service: March 02, 2025
Objective Data
-
PT 16.8 Sec (11.4-14.6) H 02/27/25 11:57
INR 1.35 02/27/25 11:57
APTT 33.8 Sec (23.4-35.0) 02/27/25 11:57
Vital Signs
Vital Signs
Temp Pulse Resp BP Pulse Ox
100.7 F H 100 16 97/66 95
03/01/25 20:57 03/01/25 21:56 03/01/25 16:21 03/01/25 21:56 03/01/25 21:21
CT Intake/Output/Weight
03/01/25 03/01/25 03/02/25
06:59 18:59 06:59
Intake Total 388.1 / 2097.2 331.0 / 471.0 140 / 471.0
Output Total 320 / 790 350 / 350
Balance 68.1 / 1307.2 -19.0 / 121.0 140 / 121.0
SaO2: 95
Physical Exam
-
General: Awake and AOx3
Cardiovascular: Regular rate & rhythm and Rub
Respiratory: Decreased Breath Sounds
Sternum: Stable
Incision: Clean, Dry and Intact
Extremities: Other (trace edema, 1+ DPs b/l)
Abdomen: soft, nontender, nondistended, + bowel sounds
Data Reviewed
-
Lab Results: Results Reviewed
Medications: Active Meds Reviewed
Chest X-Ray: Report Reviewed and Image Reviewed
ECG: Report Reviewed and Image Reviewed
[2025-03-02] MEDS: CALCIUM GLUCONATE 100 IV (05:54)
[2025-03-02 07:15] LABS: Glucose - Point of Care 139 mg/dl (70-99)
[2025-03-02] MEDS: PT'S OWN INSULIN PUMP - HumaLOG 2.5 UNIT SC (08:07)
[2025-03-02] MEDS: VITAMIN B-12 100 MCG PO (08:07)
[2025-03-02] MEDS: PROTONIX 40 MG PO (08:07)
[2025-03-02] MEDS: NEURONTIN 100 MG PO ×3 (08:08→21:29)
[2025-03-02] MEDS: SENOKOT 8.6 MG PO ×2 (08:08→20:49)
[2025-03-02] MEDS: PACERONE 400 MG PO ×3 (08:08→21:29)
[2025-03-02] MEDS: VITAMIN D3 (cholecalciferol) 25 MCG PO (08:08)
[2025-03-02] MEDS: MAGNESIUM OXIDE 400 MG PO ×2 (08:08→20:48)
[2025-03-02] MEDS: BACTROBAN 2% OINTMENT 1 APPLIC NASAL ×2 (08:09→20:47)
--- NOTE | 2025-03-02 08:13 | PN.DE.MGMTRT ---
Insulin Management
- -
03/02/2025: Diabetes Management Consult Follow up
64 year old female admitted 02/27 for OR - aortic valve replacement. PMH: HTN, Dyslipidemia, RA, T2DM on insulin and bronchiectasis with recently discovered symptomatic severe aortic stenosis. Symptoms predominantly with activity including shortness
of breath and chest tightness, escalating symptoms that were starting to occur at rest as well. Had noticed significant change in activity tolerance and symptomatology when compared to 6 months prior. Prior to admission was taking 500 mg metformin
in AM, Medtronic insulin pump with novolog insulin. A1C 8.2%, cr .6 eGFR > 60.
POD 3 s/p Aortic valve replacement. Pt is awake alert and oriented resting in bed, able to discuss diabetes care.
03/01 Transitioned from critical care glycemic protocol insulin infusion back to Medtronic insulin pump at 10:30am. Patient uses extended wear infusion set, humalog insulin and the Medtronic Guardian Sensor. New sensor started by , insulin
pump infusing at basal rate.
Insulin pump settings as follows:
Basal rate .8 every hour, 24 hour total 19.2 units.
I:CHO ratio 1:8
Sensitivity 1:45
Active insulin 2 hours.
Target glucose 100 to 120
Explained policy to patient accucheks will be checked by nurse with hospital device before each meal and HS. Patient will complete pump bedside worksheet. 03/02 Glucose range yesterday 123 to 172. Fasting glucose 107. Patient able to manage
pump without difficulty. Will continue patients own insulin pump today, no change to settings.
Discussed with Nurse.
Will follow.
Diabetes History
- -
Type of Diabetes: 2 requiring insulin
Pre-Admission Diabetes Regimen
03/02/25
03:11
Creatinine 0.8
Lab Results
Hemoglobin A1c 8.2 % (4.0-5.9) H 02/16/25 12:43
Insulin Pump Settings
IP Diabetes Regimen
03/01/25 03/01/25 03/01/25
08:50 11:38 14:06
Glucose
POC Glucose 82 169 H 123 H
03/01/25 03/01/25 03/02/25
17:30 21:55 03:11
Glucose 107 H
POC Glucose 172 H 143 H
03/02/25
07:14
Glucose
POC Glucose 139 H
Meal type: Dinner
Meal type: Breakfast
Amount consumed: 0
Amount consumed: 50%
Patient Education
--- NOTE | 2025-03-02 08:34 | W.PN.CD ---
Today's Communication / Plan
-
Routine post operative management.
Monitor anemia/thrombocytopenia. f/u HIT panel
Colchicine 0.6 mg PO BID x 3 months for pericarditis. consider asa taper once platelet recover
Repeat echocardiogram today
Furosemide 40 mg IV x1 and monitor.
Incentive spirometry.
Ambulate.
Pain/chest tube management per CT surgery.
Impression / Plan
-
Impression/Plan: 64 y/o female (patient of Dr. Fragoso) with hypertension, dyslipidemia, IDDM2, RA not on DMARDs, and RLL bronchiectasis and symptomatic severe aortic stenosis now s/p surgical AVR 02/27/[address] Nelson.
#Severe aortic stenosis:
-Chronic, progressive.
-s/p #23 Murillo Inspiris Resilia AVR with Dr. Weaver, 02/27/25.
-LVEF normal on OR RUCHI.
-SR on tele/EKG, one single 3 beat run NSVT; amio at 400 TID, no further ectopy and having ongoing hypotension, consider decreasing dose
-Post-op anemia noted, likely real blood loss but also significant dilution (> 5 kg increase in weight).
-Continue aspirin, rosuvastatin.
-Metoprolol on hold due to relative hypotension.
-Furosemide 40 mg IV x1 and monitor.
#Abnormal EKG/pericarditis
-Acute.
-EKG shows JERROD (lateral limb leads, anterolateral precordium) with [place] depressions.
-She endorses pericarditic symptoms. Exam reveals an anterior rub.
-Preop cath showed no CAD.
-Start colchicine 0.6 mg PO BID x 3 months.
-The patient would benefit from high dose aspirin taper once platelets recover first.
-Repeat echocardiogram pending today.
#Anemia/Thrombocytopenia
-Anemia is relatively chronic.
-No transfusion at this time.
-Thrombocytopenia is relatively acute - possibly post-surgical drop, HIT panel pending
-Both drops are likely related to volume/dilution.
-Monitor with diuresis.
#Hypertension, no hypotension
-asymptomatic, no symptoms of lightheadedness on ambulation, well appearing with no sings of infection
-suspect post op vasoplegia, possible contribution from high dose oral amio
-Chronic, currently normotensive to relatively hypotensive.
-Norepi weaned this AM, cont. midodrine
#IDDM2:
-Chronic, stable.
-SSI per protocol.
#HLD:
-Chronic, stable.
-Continue rosuvastatin.
Subjective/Interval History:
Norepinephrine weaned off last night.
Weight stable
improving sinus tachycardia, now persistently <100 bpm
midodrine incresaed to 10 TID
stable anemia s/p prior transfusion
Platelets previously normal, tray at 64k, 78k, HIT panel pending
EKG shows anterior JERROD, treating for pericarditis, positional chest pain improving
DATA:
TTE, 01/24/2025:
SUMMARY
1. Hyperdynamic left ventricular systolic function without regional wall motion abnormalities. LVEF 72%.
2. Mild concentric LVH.
3. Severe aortic stenosis. Peak/mean gradient 86/52 mmHg, KENIA 0.8 cm², DVI 0.26.
4. Mild aortic regurgitation. PHT 500 ms.
5. No prior study available for comparison.
Cardiac Catheterization, 01/26/2025:
CONCLUSIONS
1. Right dominant circulation with an anterior, low-lying origin of the RCA making it difficult to cannulate from a radial approach with no coronary artery disease in the right or left coronary trees.
2. Severe aortic valve stenosis on echocardiography.
3. Severe right subclavian/innominate artery tortuosity.
SAVR, 02/27/2025:
Procedure(s) Performed:
1. Standard Sternotomy with Aortic and Right Atrial Cannulation.
2. Aortic valve replacement 23 mm Inspiris Resilia.
3. Left atrial appendage ligation with 35 mm atriclip device.
3. Transesophageal echocardiography.
4. Placement of Temporary Ventricular Pacing Wires.
Intraoperative RUCHI, 02/27/2025:
CONCLUSIONS
Hypertrophied left ventricle with normal systolic function and no regional wall
motion abnormalities. LVEF 65-70%.
Normal right ventricular systolic function.
Normal tricuspid valve.
Trace to mild mitral regurgitation.
Moderate to severe aortic stenosis with moderate regurgitation.
Normal left atrial appendage.
Grossly normal thoracic aorta.
POST OPERATIVE FINDINGS
S/P AVR with size 23 bioprosthetic valve; BOGDAN exclusion
The aortic valve is well-seated with no paravalvular leak. The mean gradient is
10 mmHg with a cardiac index of 3 L/min/meters sq. The left atrial appendage is
no longer present with color Doppler confirming the absence of flow. Otherwise
unchanged exam.
Physical Exam
Vital Signs/Labs
Vital Signs
Temp Pulse Resp BP Pulse Ox
38.2 C H 90 20 89/71 98
03/01/25 20:57 03/02/25 08:08 03/02/25 08:03 03/02/25 08:08 03/02/25 08:04
03/01/25 03/02/25 03/03/25
06:59 06:59 06:59
Actual Weight 78.5 kg 78.6 kg
03/02/25 03:11
03/02/25 03:11
PT 16.8 Sec (11.4-14.6) H 02/27/25 11:57
INR 1.35 02/27/25 11:57
APTT 33.8 Sec (23.4-35.0) 02/27/25 11:57
Magnesium 2.0 mg/dl (1.6-2.3) 03/02/25 03:11
Physical Exam
Constitutional: Comfortable
Cardiovascular: Rhythm & rate is regular
Respiratory: Respiratory effort normal
Neuro/Psych: AO x 3
Data Reviewed
-
Date of Service: March 02, 2025
Medical Decision Making: Reviewed Test Results
Labs: Labs Reviewed by me
[2025-03-02] MEDS: LIDOCAINE 4% PATCH 1 PATCH TOPICAL (09:00)
[2025-03-02] MEDS: COLCHICINE 0.3 MG PO (09:00)
--- NOTE | 2025-03-02 09:27 | PTCARENOTE ---
Rec'd pt this shift awake and alert sitting in chair. Pt denies pain, denies sob. RA, Pulse ox 98%. Pt NSR on monitor. AM meds given. Pt ambulating in room and in hallway, tolerated well. See worklist for VS/I and O and assessments.
--- NOTE | 2025-03-02 11:43 | CM ---
Chart reviewed. Patient stated she feels much better today. Patient is independent of ADLS, lives with her in a 2 STH, 1 JERROD through the front and 4 JERROD through the deck, 0 DME. Plan is for the patient to return home with CT
Transitional RN. CM to follow
[2025-03-02] MEDS: NSS IV (12:23)
--- NOTE | 2025-03-02 12:29 | PTCARENOTE ---
Pt ambulating in room and in hallway without difficulty.
[2025-03-02 13:03] LABS: Glucose - Point of Care 117 mg/dl (70-99)
[2025-03-02] MEDS: LOPRESSOR 12.5 MG PO ×2 (13:24→20:53)
[2025-03-02] MEDS: PT'S OWN INSULIN PUMP - HumaLOG 3.5 UNIT SC (13:25)
--- NOTE | 2025-03-02 13:28 | PTCARENOTE ---
Pt in bathroom c/o feeling cold. HR 125 in bathroom, ambulated back to chair. HR decreased to 112 sitting in chair. BP 132/95. DRESS SHOE INSPECTOR, Demetria aware. Midodrine held. 12.5mg Metoprolol given. Warm blankets given. Pt states she feels warmer now, ordering
her lunch.
[2025-03-02] MEDS: FERRLECIT 110 MG IV (15:11)
[2025-03-02 17:41] LABS: Glucose - Point of Care 168 mg/dl (70-99)
[2025-03-02] MEDS: PT'S OWN INSULIN PUMP - HumaLOG 4.3 UNIT SC (18:20)
--- NOTE | 2025-03-02 20:00 | PTCARENOTE ---
Assumed care of the patient at 1900. Patient in bed, son at bedside, AOx3, pleasant, c/o 6/10 back pain. Sr-ST on CM, rates 90-110's, heart tones audible, very faint rub auscultated, pulses palpable throughout, trace to +1 LE edema, v wire
insulated. Lungs dim at the bases, no cough, on RA, IS encouraged. Abd SNT, good BS, last BM today per patient, passing flatus, appetite ok; own insulin pump on RLQ of abdomen, CGM on LUE. Voiding in the toilet clear yellow urine without difficulty.
MSI BEE RANCHER CDI, CT dressing CDI. PIVx1 in RAC INT. Asstx1 OOB and then standby to ambulate in the room. Initially, BP elevated after getting BIB from the bathroom. Recheck WNL. Medications administered, Toradol for pain. See nursing worklist for
additional intervention details. Call newman within reach, assessment of needs ongoing.
[2025-03-02] MEDS: REMOVE LIDOCAINE PATCH 1 PATCH REMOVE (20:49)
[2025-03-02 21:28] LABS: Glucose - Point of Care 137 mg/dl (70-99)
[2025-03-02] MEDS: CRESTOR 20 MG PO (21:29)
[2025-03-02] MEDS: PT'S OWN INSULIN PUMP - HumaLOG SC (21:32)
[2025-03-02] MEDS: TORADOL 15 MG IV (21:40)
[2025-03-03] VITALS (15 sets, daily range): BP systolic 85–164; BP diastolic 62–97; PULSE 84; O2SAT 98–100; BMI 30.5
--- NOTE | 2025-03-03 00:15 | PTCARENOTE ---
Pt hypotensive to 85/62; CVPA aware, MAP sufficient, pt asymptomatic, comfortable in bed. Fall precautions discussed with patient regarding when ambulating to the bathroom. Assessment of needs ongoing, call newman within reach. No other acute changes.
[2025-03-03 04:53] LABS: Hematocrit 26.2 % (37.0-47.0); Hemoglobin 8.6 g/dL (12.0-16.0); Mean Corp Hgb Conc. 32.8 g/dL (33.0-37.0); Mean Corpuscular Volume 87.0 fL (81.0-99.0); Platelet Count 85 10^3/uL (130-400); Red Cell Dist. Width 14.6 % (11.5-14.5)
[2025-03-03] MEDS: TYLENOL 975 MG PO ×3 (05:09→21:14)
--- NOTE | 2025-03-03 05:21 | W.PN.CT ---
Today's Communication / Plan
-
-pod #4
-looks and feels better overall, ambulated, denies dizziness or nausea
-remains hypotensive, suspected vasoplegia. Lopressor restarted 03/02. On Midodrine 10 tid
-s/p 2 pRBCs, IVFs postop.
-follow Hg stable - 8.6 today (8.8 on 03/02, 8.4 on 03/01)
-follow platelets- improving, 85 K today (78K on 03/02, 64K 03/01, 73K on 02/28, 97K on 02/27, and 185 preop). HIT panel sent out on 03/01. Holding ASA- will restart once platelets improve
-Bmp pending
-abnormal ECG- s/p Echo 03/02 with nl EF, no wma and well functioning aortic valve, trivial pericardial effusion
-current meds (Crestor, Amio 400 tid, Colchicine, Midodrine 10 tid, Mg, Gabapentin, Protonix)
-2v-CXR today
-encourage OOB, ambulate
Assessment / Plan
-
Assessment:
-S/P Standard Sternotomy/Aortic valve replacement (23 mm Inspiris Resilia)/Left atrial appendage ligation (35 mm atriclip device), by Dr. Weaver, 02/27/25, pod#4
-Severe
-Moderate MR
-LVEF 65-70% per intraop RUCHI
-Preop cath showed no CAD
-Rheumatoid arthritis
-Type 2 diabetes (hgb A1C 8.2)
-Hypertension
-Hyperlipidemia
-Bronchiectasis RLL
-Congenital leukopenia
-S/P Laparoscopy x 2 (06/2008, 06/2009)
-S/p Cardiac cath, 01/26/25
-Acute postop blood loss/Anemia (transfused 1u PRBC on 02/27 and 1u PRBC on 02/28)
-Acute postop hypotension, suspected vasoplegia - got IVF, started on Midodrine
-Acute postop thrombocytopenia (no active bleed)- HIT panel pending
-Acute postop atelectasis
-Acute postop hypovolemia with subsequent hypervolemia
-3 beat run NSVT- Amio was increased to 400 TID.
-Suspected acute postop pericarditis, + rub/ Abnormal ECG- tx with Colchicine
-Acute postop hyponatremia
-Echo 03/02/25:
1. Normal left ventricular size, wall thickness and systolic function. No regional wall motion abnormalities are seen.
2. Ejection fraction is 65-70% by visual assessment.
3. Right ventricular size and systolic function are within normal limits.
4. Status post aortic valve replacement. Murillo Inspiris Resilia aortic valve prosthesis is noted. Aortic prosthesis appears to be functioning normally. Aortic prosthesis is stable and well seated. There is no prosthetic aortic valve stenosis or
obstruction. Aortic valve gradients are normal for this prosthesis type. No residual aortic regurgitation is detected. No aortic paravalvular leak is observed.
5. No other significant valve abnormalities are observed.
6. Trivial pericardial effusion is noted.
7. Pleural effusion is noted.
8. Compared to a prior transesophageal echocardiogram study from 02/27/2025 a trivial pericardial effusion is observed and a pleural effusion is noted.
Discussed patient care with: Nursing and Care Team
Subjective
Procedure
S/P Standard Sternotomy/Aortic valve replacement (23 mm Inspiris Resilia)/Left atrial appendage ligation (35 mm atriclip device), by Dr. Weaver, 02/27/25
-
Date of Service: March 03, 2025
Objective Data
-
PT 16.8 Sec (11.4-14.6) H 02/27/25 11:57
INR 1.35 02/27/25 11:57
APTT 33.8 Sec (23.4-35.0) 02/27/25 11:57
Vital Signs
Vital Signs
Temp Pulse Resp BP Pulse Ox
98.8 F 95 18 85/62 98
03/03/25 00:05 03/03/25 00:05 03/03/25 00:05 03/03/25 00:05 03/03/25 00:05
CT Intake/Output/Weight
03/02/25 03/02/25 03/03/25
06:59 18:59 06:59
Intake Total 140 / 471.0 1370 / 1420 50 / 1420
Output Total 900 / 1430 530 / 1430
Balance 140 / 121.0 470 / -10 -480 / -10
SaO2: 98
Physical Exam
-
General: Awake and AOx3
Cardiovascular: Regular rate & rhythm and Rub
Respiratory: Decreased Breath Sounds
Sternum: Stable
Incision: Clean, Dry and Intact
Abdomen: soft, nontender, nondistended, + bowel sounds, BM x2 on 03/02, denies nausea
Extremities: Other (trace edema, 1+ DPs b/l)
Data Reviewed
-
Lab Results: Results Reviewed
Medications: Active Meds Reviewed
Chest X-Ray: Report Reviewed and Image Reviewed
ECG: Report Reviewed and Image Reviewed
[2025-03-03 05:22] LABS: Blood Urea Nitrogen 14 mg/dl (7-17); Calcium 8.3 mg/dl (8.4-10.2); Carbon Dioxide 29 mmol/L (22-30); Chloride 106 mmol/L (98-107); Estimated Creatinine Clearance 71 ml/min; Glucose 94 mg/dl (70-99); Magnesium 2.0 mg/dl (1.6-2.3); Potassium 4.0 mmol/L (3.5-5.1); Sodium 135 mmol/L (135-145); eGFR > 60.00
--- NOTE | 2025-03-03 05:30 | PTCARENOTE ---
No acute changes, labs drawn and sent, pt ambulated in the hallway with standby assistance, tolerated well.
[2025-03-03] MEDS: COLCHICINE 0.3 MG PO (07:58)
[2025-03-03] MEDS: PROTONIX 40 MG PO (07:58)
[2025-03-03] MEDS: LOPRESSOR 12.5 MG PO ×2 (07:58→20:45)
[2025-03-03] MEDS: MAGNESIUM OXIDE 400 MG PO ×2 (07:58→20:45)
[2025-03-03] MEDS: SENOKOT 8.6 MG PO ×2 (07:58→20:45)
[2025-03-03] MEDS: LOW STRENGTH ASPIRIN 81 MG PO (07:58)
[2025-03-03] MEDS: NEURONTIN 100 MG PO ×3 (07:58→21:14)
[2025-03-03] MEDS: VITAMIN B-12 100 MCG PO (07:58)
[2025-03-03] MEDS: VITAMIN D3 (cholecalciferol) 25 MCG PO (07:58)
[2025-03-03] MEDS: PACERONE 400 MG PO ×2 (07:59→21:18)
[2025-03-03] MEDS: BACTROBAN 2% OINTMENT 1 APPLIC NASAL (07:59)
[2025-03-03] MEDS: LIDOCAINE 4% PATCH 1 PATCH TOPICAL (07:59)
--- NOTE | 2025-03-03 07:59 | W.PN.CD ---
Today's Communication / Plan
-
Aspirin taper.
Routine post operative management.
Incentive spirometry.
Ambulation.
Diuresis.
Decrease amiodarone.
Impression / Plan
-
Impression/Plan: 64 y/o female (patient of Dr. Fragoso) with hypertension, dyslipidemia, IDDM2, RA not on DMARDs, and RLL bronchiectasis and symptomatic severe aortic stenosis now s/p surgical AVR 02/27/[address] Nelson.
#Severe aortic stenosis:
-Chronic, progressive.
-s/p #23 Murillo Inspiris Resilia AVR with Dr. Weaver, 02/27/25.
-LVEF normal on OR RUCHI.
-SR on tele/EKG, one single 3 beat run NSVT; amio at 400 TID. Decrease amiodarone to 400 mg daily until discharge, then 200 mg BID for 2 weeks followed by 200 mg daily until seen by cardiology in office.
-Post-op anemia noted, likely real blood loss but also significant dilution (> 5 kg increase in weight).
-Continue aspirin, rosuvastatin.
-Metoprolol on hold due to relative hypotension.
-Furosemide 40 mg IV x1 and monitor.
#Abnormal EKG/pericarditis
-Acute.
-EKG shows JERROD (lateral limb leads, anterolateral precordium) with [place] depressions.
-She endorses pericarditic symptoms. Exam reveals an anterior rub.
-Preop cath showed no CAD.
-Start colchicine 0.6 mg PO BID x 3 months.
-Repeat echocardiogram shows preserved systolic function, trace pericardial effusion.
-Platelets are recovering. Ok to start aspirin taper:
-Aspirin 975 mg TID x 3 days, then
-Aspirin 650 mg TID x 3 days, then
-Aspirin 325 mg TID x 3 days, then
-Aspirin 325 mg BID x 3 days, then
-Aspirin 325 mg daily x 3 days, then
-Aspirin 81 mg daily.
#Anemia/Thrombocytopenia
-Anemia is relatively chronic.
-No transfusion at this time.
-Thrombocytopenia is relatively acute - possibly post-surgical drop, HIT panel pending.
-Both drops are likely related to volume/dilution.
-Monitor with diuresis.
#Hypertension
-Currently hypotensive.
-Asymptomatic, no symptoms of lightheadedness on ambulation, well appearing with no sings of infection.
-Suspect post op vasoplegia, possible contribution from high dose oral amio.
-Chronic, currently normotensive to relatively hypotensive.
-Norepinephrine weaned this AM, cont. midodrine.
#IDDM2:
-Chronic, stable.
-SSI per protocol.
#HLD:
-Chronic, stable.
-Continue rosuvastatin.
Subjective/Interval History:
Echo shows normal LV function.
Relative hypotension.
DATA:
TTE, 01/24/2025:
SUMMARY
1. Hyperdynamic left ventricular systolic function without regional wall motion abnormalities. LVEF 72%.
2. Mild concentric LVH.
3. Severe aortic stenosis. Peak/mean gradient 86/52 mmHg, KENIA 0.8 cm², DVI 0.26.
4. Mild aortic regurgitation. PHT 500 ms.
5. No prior study available for comparison.
Cardiac Catheterization, 01/26/2025:
CONCLUSIONS
1. Right dominant circulation with an anterior, low-lying origin of the RCA making it difficult to cannulate from a radial approach with no coronary artery disease in the right or left coronary trees.
2. Severe aortic valve stenosis on echocardiography.
3. Severe right subclavian/innominate artery tortuosity.
SAVR, 02/27/2025:
Procedure(s) Performed:
1. Standard Sternotomy with Aortic and Right Atrial Cannulation.
2. Aortic valve replacement 23 mm Inspiris Resilia.
3. Left atrial appendage ligation with 35 mm atriclip device.
3. Transesophageal echocardiography.
4. Placement of Temporary Ventricular Pacing Wires.
Intraoperative RUCHI, 02/27/2025:
CONCLUSIONS
Hypertrophied left ventricle with normal systolic function and no regional wall
motion abnormalities. LVEF 65-70%.
Normal right ventricular systolic function.
Normal tricuspid valve.
Trace to mild mitral regurgitation.
Moderate to severe aortic stenosis with moderate regurgitation.
Normal left atrial appendage.
Grossly normal thoracic aorta.
POST OPERATIVE FINDINGS
S/P AVR with size 23 bioprosthetic valve; BOGDAN exclusion
The aortic valve is well-seated with no paravalvular leak. The mean gradient is
10 mmHg with a cardiac index of 3 L/min/meters sq. The left atrial appendage is
no longer present with color Doppler confirming the absence of flow. Otherwise
unchanged exam.
Physical Exam
Vital Signs/Labs
Vital Signs
Temp Pulse Resp BP Pulse Ox
37.0 C 101 18 123/89 97
03/03/25 04:02 03/03/25 05:10 03/03/25 04:02 03/03/25 05:10 03/03/25 04:02
03/01/25 03/02/25 03/03/25
11:59 11:59 11:59
Actual Weight 78.5 kg 78.6 kg 78.2 kg
03/03/25 04:28
03/03/25 04:28
PT 16.8 Sec (11.4-14.6) H 02/27/25 11:57
INR 1.35 02/27/25 11:57
APTT 33.8 Sec (23.4-35.0) 02/27/25 11:57
Magnesium 2.0 mg/dl (1.6-2.3) 03/03/25 04:28
Physical Exam
Constitutional: No acute distress and Comfortable
EENT: Anicteric and Moist mucous membranes
Cardiovascular: Rhythm & rate is regular, Pedal edema is absent, JVD pressure is normal, S1S2 is normal and Murmur/rub/gallop absent
Respiratory: Respiratory effort normal, Lungs clear to auscul., Wheeze Absent, Crackles Absent and Rhonchi Absent
GI: Soft, Distention absent, Flat, Non tender and Normal bowel sounds
Neuro/Psych: AO x 3
Data Reviewed
-
Date of Service: March 03, 2025
Medical Decision Making: Reviewed Test Results, Independent Historian Assessment and Test Interpretation
EKG: Tracing Personally Visualized and interpreted and Report Reviewed by me
Echo: Tracing Personally Visualized and interpreted and Report Reviewed by me
X-Ray/CT/US/MRI/NUC/PET: Image Personally Visualized and interpreted and Report Reviewed by me
Medical Tests (PFT, Pathology etc): Image Personally Visualized and interpreted and Report Reviewed by me
Labs: Labs Reviewed by me
Old Records: Reviewed
[2025-03-03] MEDS: NSS IV (08:00)
[2025-03-03 08:15] LABS: Glucose - Point of Care 152 mg/dl (70-99)
--- NOTE | 2025-03-03 08:15 | PTCARENOTE ---
Assumed care of patient at 0700. Pt is awake, alert, and oriented. No complaints of pain at this time. Pt remains SR with HR 93. BP 115/78 MAP 91. Epicardial V wire insulated. Pulse oximetry 100% on room air. Continues to utilize IS. Pt tolerating
PO diet. Pt with own insulin pump in place. Voiding in bathroom without issue. Midsternal incision approximated and LYNN. Pt currently OOB in chair with at bedside.
[2025-03-03] MEDS: PT'S OWN INSULIN PUMP - HumaLOG 3.7 UNIT SC (08:25)
--- NOTE | 2025-03-03 08:32 | PN.DE.MGMTRT ---
Insulin Management
- -
03/03/2025: Diabetes Management Follow up
64 year old female admitted 02/27 for OR - aortic valve replacement. PMH: HTN, Dyslipidemia, RA, T2DM on insulin and bronchiectasis with recently discovered symptomatic severe aortic stenosis. Symptoms predominantly with activity including shortness
of breath and chest tightness, escalating symptoms that were starting to occur at rest as well. Had noticed significant change in activity tolerance and symptomatology when compared to 6 months prior. Prior to admission was taking 500 mg metformin
in AM, Medtronic insulin pump with Humalog insulin. A1C 8.2%, cr .6 eGFR > 60.
Pt is awake alert and oriented resting in bed, able to discuss diabetes care. POD #4 s/p Aortic valve replacement.
03/01 Transitioned from critical care glycemic protocol insulin infusion back to Medtronic insulin pump at 10:30am. Patient uses extended wear infusion set, Humalog insulin and the Medtronic Guardian Sensor. New sensor started by , insulin
pump infusing at basal rate.
Insulin pump settings as follows:
Basal rate .8 every hour, 24 hour total 19.2 units.
I:CHO ratio 1:8
Sensitivity 1:45
Active insulin 2 hours.
Target glucose 100 to 120
Explained policy to patient accucheks will be checked by nurse with hospital device before each meal and HS. Patient will complete pump bedside worksheet. Glucose range yesterday 117 to 168. Fasting glucose 152. Will start Farxiga 10mg daily,
will ask CM to verify co-pay. 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
Patient able to manage pump without difficulty. Will continue patients own insulin pump today, no change to pump settings. had a lengthy discussion with pt and , encouraged pt to adhere to low sodium, lean protein and vegetable rich diet.
Informed Patient that she will go through cardiac rehab where she will meet with the Plywood Factory Worker and will have a more detailed discussion about heart healthy and diabetic diets.
Discussed with Nurse. Will cont to follow.
Diabetes History
- -
Type of Diabetes: 2 requiring insulin
Pre-Admission Diabetes Regimen
03/03/25
04:28
Creatinine 0.8
Lab Results
Hemoglobin A1c 8.2 % (4.0-5.9) H 02/16/25 12:43
Insulin Pump Settings
IP Diabetes Regimen
03/02/25 03/02/25 03/02/25
13:02 17:40 21:27
Glucose
POC Glucose 117 H 168 H 137 H
03/03/25 03/03/25
04:28 08:04
Glucose 94
POC Glucose 152 H
Meal type: Breakfast
Amount consumed: 100%
Patient Education
--- NOTE | 2025-03-03 09:58 | CM ---
Chart reviewed. Patient is OOB sitting in the chair, at bedside. Patient is OOB sitting in the chair. Patient is independent of ADLS, lives with her in a 2 STH, 1 JERROD through the front, 4 JERROD through the deck, 0 DME. Plan is
for the patient to return home with CT Transitional RN. CM to follow
[2025-03-03] MEDS: LASIX 20 MG IV (10:34)
--- NOTE | 2025-03-03 10:59 | CM ---
Pricing on Farxiga through the patient's [facility] is covered at $15 for a 30 day supply. I will place a $0 copay card in the patient's red discharge folder. CM to follow
[2025-03-03] MEDS: FARXIGA 10 MG PO (11:23)
--- NOTE | 2025-03-03 11:30 | PTCARENOTE ---
Pt ambulated with cardiac rehab, steps completed. 20mg IV Lasix administered. Pt remains SR with HR 93, BP 134/89 MAP 103. Pulse oximetry 100% on room air. Pt currently taking afternoon rest.
[2025-03-03 13:31] LABS: Glucose - Point of Care 109 mg/dl (70-99)
[2025-03-03] MEDS: GLUCOPHAGE 500 MG PO (13:31)
[2025-03-03] MEDS: PT'S OWN INSULIN PUMP - HumaLOG 3.2 UNIT SC (14:39)
[2025-03-03] MEDS: ROXICODONE 5 MG PO (15:41)
--- NOTE | 2025-03-03 15:45 | PTCARENOTE ---
2 view x-ray completed. Pt remains SR/ST with HR 90's, HR up to 116 with ambulation. BP 161/97 MAP 116 after ambulation. BP 131/83 MAP [address] SYED, aware.
[2025-03-03] MEDS: GLUCOPHAGE PO (18:03)
[2025-03-03 18:11] LABS: Glucose - Point of Care 110 mg/dl (70-99)
[2025-03-03] MEDS: PT'S OWN INSULIN PUMP - HumaLOG 2.9 UNIT SC (18:12)
--- NOTE | 2025-03-03 20:00 | PTCARENOTE ---
Resumed care of the patient at 1900. Patient in bed, AOx3, pain well controlled at this time. SR-ST on CM, rates 90-110's, heart tones audible, no rub appreciated at this time, trace LE edema, pulses palpable pulses, epicardial V wire insulated. RA,
lungs diminished at the bases, no cough, IS encouraged. Abd SNT, normoactive BS, last BM today, appetite improving; Medtronic insulin pump on RLQ, CGM maintained on LUE. Voiding without difficulty in the toilet clear yellow urine. MSI FOOD AND BEVERAGE MANAGER CDI,
surgical bra in place, CT dressing CDI. PIVx1 INT. Standby OOB and ambulating with improved endurance. PO K+ administered, as well as scheduled medications. See nursing worklist for more details. Call newman within reach, assessment of needs ongoing.
[2025-03-03] MEDS: REMOVE LIDOCAINE PATCH REMOVE (20:46)
[2025-03-03 21:14] LABS: Glucose - Point of Care 139 mg/dl (70-99)
[2025-03-03] MEDS: PT'S OWN INSULIN PUMP - HumaLOG SC (21:14)
[2025-03-03] MEDS: CRESTOR 20 MG PO (21:14)
[2025-03-03] MEDS: KCL 40 MEQ PO (21:14)
[2025-03-04] VITALS (17 sets, daily range): BP systolic 120–162; BP diastolic 79–102; PULSE 97; O2SAT 98–99; BMI 29.8
--- NOTE | 2025-03-04 | PTCARENOTE ---
No acute issues, pt had BM and voided in the toilet, partially missed the hat. Resting comfortably in bed. VSS. Call newman within reach, assessment of needs ongoing.
[2025-03-04] MEDS: ZOFRAN 4 MG IV ×2 (03:38→16:15)
[2025-03-04 03:39] LABS: Glucose - Point of Care 91 mg/dl (70-99)
--- NOTE | 2025-03-04 03:56 | PTCARENOTE ---
Pt called RN in to c/o nausea, stating she has been having trouble sleeping due to stomach upset. Zofran administered; demarcus mac provided. At this time, CGM read 74 - fingerstick glucose yielded read of 91. Pt encouraged to calibrate her monitor
with fingerstick glucose result. CVPA made aware. Assessment of needs ongoing.
--- NOTE | 2025-03-04 04:48 | W.PN.CT ---
Today's Communication / Plan
-
Plan:
-No major issues overnight. Hemodynamically and neurologically intact
-Off all drips
-Noted to be hypotensive postop, improved, midodrine placed on hold. Tolerating resumption of BB
-Will replete ca++ to help augment BP
-Noted to be tachycardic in 120's with ambulation, on Lopressor/Amiodarone. Will increase Lopressor from 12.5 BID to 25 BID now that BP has improved
-On Colchicine for suspected postop acute pericarditis
-Postop thrombocytopenia has resolved, 64->78->85->145. HIT panel negative. Resumed ASA yesterday 03/03
-Cont. current meds (Crestor, Amio 400, Lopressor, Colchicine, Gabapentin, Protonix)
-Encourage use of IS
-OOB into chair/Ambulate
-Will cut temporary PW
-Home later today vs tomorrow
Assessment / Plan
-
Assessment:
-S/P Standard Sternotomy/Aortic valve replacement (23 mm Inspiris Resilia)/Left atrial appendage ligation (35 mm atriclip device), by Dr. Weaver, 02/27/25, pod#5
-Severe
-Moderate MR
-LVEF 65-70% per intraop RUCHI
-Preop cath showed no CAD
-Rheumatoid arthritis
-Type 2 diabetes (hgb A1C 8.2)
-Hypertension
-Hyperlipidemia
-Bronchiectasis RLL
-Congenital leukopenia
-S/P Laparoscopy x 2 (06/2008, 06/2009)
-S/p Cardiac cath, 01/26/25
-Acute postop blood loss/Anemia (transfused 1u PRBC on 02/27 and 1u PRBC on 02/28)
-Acute postop hypotension, suspected vasoplegia - got IVF, started on Midodrine
-Acute postop thrombocytopenia (no active bleed)- HIT panel negative
-Acute postop atelectasis
-Acute postop hypovolemia with subsequent hypervolemia
-3 beat run NSVT- Amio was increased to 400 TID.
-Suspected acute postop pericarditis, + rub/ Abnormal ECG- tx with Colchicine
-Acute postop hyponatremia
-Echo 03/02/25:
1. Normal left ventricular size, wall thickness and systolic function. No regional wall motion abnormalities are seen.
2. Ejection fraction is 65-70% by visual assessment.
3. Right ventricular size and systolic function are within normal limits.
4. Status post aortic valve replacement. Murillo Inspiris Resilia aortic valve prosthesis is noted. Aortic prosthesis appears to be functioning normally. Aortic prosthesis is stable and well seated. There is no prosthetic aortic valve stenosis or
obstruction. Aortic valve gradients are normal for this prosthesis type. No residual aortic regurgitation is detected. No aortic paravalvular leak is observed.
5. No other significant valve abnormalities are observed.
6. Trivial pericardial effusion is noted.
7. Pleural effusion is noted.
8. Compared to a prior transesophageal echocardiogram study from 02/27/2025 a trivial pericardial effusion is observed and a pleural effusion is noted.
Discussed patient care with: Cardiology, Nursing, Respiratory Therapy, Pharmacy and Care Team
Subjective
-
Date of Service: March 04, 2025
Pt c/o mild incisional pain, otherwise feels well
Objective Data
-
PT 16.8 Sec (11.4-14.6) H 02/27/25 11:57
INR 1.35 02/27/25 11:57
APTT 33.8 Sec (23.4-35.0) 02/27/25 11:57
Vital Signs
Vital Signs
Temp Pulse Resp BP Pulse Ox
98.7 F 93 18 138/90 98
03/04/25 00:09 03/04/25 01:00 03/04/25 00:09 03/04/25 00:09 03/04/25 00:09
CT Intake/Output/Weight
03/03/25 03/03/25 03/04/25
06:59 18:59 06:59
Intake Total 100 / 1470 100 / 100
Output Total 730 / 1630 2650 / 3050 400 / 3050
Balance -630 / -160 -2650 / -2950 -300 / -2950
SaO2: 98 (RA)
Physical Exam
-
General: Awake, Oriented and AOx3
Cardiovascular: Regular rate & rhythm, No Murmurs, No Rub and No Gallop
Respiratory: Decreased Breath Sounds (at bases, otherwise clear)
Sternum: Stable
Incision: Clean, Dry, Intact and Dressing Intact
Extremities: Other (+trace edema)
Data Reviewed
-
Lab Results: Results Reviewed
Medications: Active Meds Reviewed
Chest X-Ray: Report Reviewed and Image Reviewed
ECG: Report Reviewed and Image Reviewed
[2025-03-04 05:16] LABS: Hematocrit 30.7 % (37.0-47.0); Hemoglobin 10.1 g/dL (12.0-16.0); Mean Corp Hgb Conc. 32.9 g/dL (33.0-37.0); Mean Corpuscular Volume 89.2 fL (81.0-99.0); Platelet Count 114 10^3/uL (130-400); Red Cell Dist. Width 14.5 % (11.5-14.5)
[2025-03-04 05:53] LABS: Blood Urea Nitrogen 10 mg/dl (7-17); Calcium 8.0 mg/dl (8.4-10.2); Carbon Dioxide 29 mmol/L (22-30); Chloride 105 mmol/L (98-107); Estimated Creatinine Clearance 81 ml/min; Glucose 124 mg/dl (70-99); Potassium 4.0 mmol/L (3.5-5.1); Sodium 138 mmol/L (135-145); eGFR > 60.00
[2025-03-04] MEDS: CALCIUM GLUCONATE 130 MG IV (06:08)
[2025-03-04] MEDS: TYLENOL 975 MG PO ×3 (06:08→21:15)
[2025-03-04] MEDS: PACERONE 400 MG PO (06:24)
[2025-03-04 06:48] LABS: Magnesium 1.9 mg/dl (1.6-2.3)
[2025-03-04 08:13] LABS: Glucose - Point of Care 122 mg/dl (70-99)
[2025-03-04] MEDS: PT'S OWN INSULIN PUMP - HumaLOG 4.2 UNIT SC (08:15)
[2025-03-04] MEDS: LOW STRENGTH ASPIRIN 81 MG PO (08:40)
[2025-03-04] MEDS: VITAMIN D3 (cholecalciferol) 25 MCG PO (08:40)
[2025-03-04] MEDS: PROTONIX 40 MG PO (08:40)
[2025-03-04] MEDS: GLUCOPHAGE 500 MG PO (08:41)
[2025-03-04] MEDS: NEURONTIN 100 MG PO ×3 (08:41→21:15)
[2025-03-04] MEDS: FARXIGA 10 MG PO (08:41)
[2025-03-04] MEDS: VITAMIN B-12 100 MCG PO (08:41)
[2025-03-04] MEDS: COLCHICINE 0.3 MG PO (08:41)
[2025-03-04] MEDS: SENOKOT 8.6 MG PO (08:42)
[2025-03-04] MEDS: MAGNESIUM OXIDE 400 MG PO ×2 (08:42→19:59)
[2025-03-04] MEDS: NSS IV (08:49)
[2025-03-04] MEDS: LOPRESSOR 25 MG PO (09:05)
[2025-03-04] MEDS: LIDOCAINE 4% PATCH 1 PATCH TOPICAL (09:05)
--- NOTE | 2025-03-04 09:30 | PTCARENOTE ---
Resumed care of the patient at 0700. Patient OOB to chair, fully alert and oriented, denies pain. Sinus tachycardia on monitor, rate 100-110, trace LE edema, pulses palpable pulses, epicardial V-wire insulated. Room air, lungs diminished at the
bases, no cough, IS encouraged. Abd soft/nontender, normoactive BS, BM today, good appetite; Medtronic insulin pump on RLQ, CGM maintained on LUE. Voiding without difficulty in the toilet clear yellow urine. Sternal incision TIRE SERVICER CDI, surgical bra in
place, CT dressing CDI. PIVx1. Standby assist OOB and ambulating.
[2025-03-04 13:31] LABS: Glucose - Point of Care 107 mg/dl (70-99)
[2025-03-04] MEDS: PT'S OWN INSULIN PUMP - HumaLOG SC (13:31)
[2025-03-04] MEDS: COZAAR 50 MG PO (14:49)
[2025-03-04 17:15] LABS: Glucose - Point of Care 124 mg/dl (70-99)
[2025-03-04] MEDS: PT'S OWN INSULIN PUMP - HumaLOG 5.8 UNIT SC (17:15)
[2025-03-04] MEDS: GLUCOPHAGE PO (17:17)
--- NOTE | 2025-03-04 17:26 | PTCARENOTE ---
Pt OOB in chair for dinner. Accucheck performed on patient AC/HS, insulin administered via pt own insulin pump. Pt refused 1700 dose of Metformin, spoke with SOLAR INSTALLATION HELPER, discussed reason for metformin need with patient, states that she would rather wait for
follow-up appointment with her metal gauge maker before making changes to her regimen. Pt BP elevated, losartan 50mg given, also added to daily PO regimen. Pt OOB with minimal assistance and ambulates often, well tolerated. PIV intact.
[2025-03-04] MEDS: REMOVE LIDOCAINE PATCH REMOVE (19:58)
[2025-03-04] MEDS: LOPRESSOR 50 MG PO (19:59)
[2025-03-04] MEDS: SENOKOT PO (19:59)
--- NOTE | 2025-03-04 20:00 | PTCARENOTE ---
Resumed care of the patient at 1900. AOx3, spouse at bedside, pain well controlled. ST on CM, rates 100-110's, heart tones audible, trace LE edema, pulses palpable, epicardial V wire insulated. Lungs dim at the bases on RA, IS encouraged. Abd SNT,
hyperactive BS, last BM today, appetite good, some nausea p/t having BM per patient, Senna held; Medtronic insulin pump on RLQ, CGM LUE. Voiding clear yellow urine into the toilet without difficulty. MSI LYNN CDI, surgical bra in place, CT dressing
CDI. PIVx1 INT. Independently ambulating with improved endurance. POC discussed with pt and her , assessment of needs ongoing, call newman within reach.
[2025-03-04] MEDS: CRESTOR 20 MG PO (21:15)
[2025-03-04] MEDS: PACERONE 200 MG PO (21:17)
[2025-03-04 21:19] LABS: Glucose - Point of Care 168 mg/dl (70-99)
[2025-03-04] MEDS: PT'S OWN INSULIN PUMP - HumaLOG 0.7 UNIT SC (21:23)
--- NOTE | 2025-03-04 23:00 | PTCARENOTE ---
report received from previous RN, walking rounds done. pt AAO4, pt denies any pain. VSS. SR on monitor, HR 90s. +peripheral pulses, trace LE edema noted. epicardial V wire in place and insulated. B/L breath sounds present, POX 100% on room air. IS
encouraged. +BS. Medtronic insulin pump on RLQ, CGM LUE. pt voids spontaneously. all surgical sites stable. PIV x1 intact and patent. pt ambulates independently in room. see worklist for full assessment, VS, and interventions.
[2025-03-05] VITALS (8 sets, daily range): BP systolic 112–148; BP diastolic 76–94; BMI 29.4
[2025-03-05] MEDS: FLEXERIL 5 MG PO (00:35)
--- NOTE | 2025-03-05 03:40 | W.PN.CT ---
Today's Communication / Plan
-
Plan:
-No major issues overnight. Hemodynamically and neurologically intact
-Off all drips
-Noted to be hypotensive postop, improved, midodrine placed on hold. Tolerating resumption of BB
-Will replete ca++ to help augment BP
-Will replete K of 3.9
-Postop tachycardia improving, increased Lopressor to 50 mg BID, tolerating. Placed Losartan on hold.
-Cardiology wants pt to go home on Amiodarone 200 mg PO BID x 2 weeks, followed by 200 mg Qdaily until seen by them
-On Colchicine for suspected postop acute pericarditis
-Postop thrombocytopenia is resolving, 64->78-> 85 -> 114 -> 123. HIT panel negative. Resumed ASA yesterday 03/03
-Cont. current meds (Crestor, Amio 400, Lopressor, Colchicine, Gabapentin, Protonix)
-Encourage use of IS
-OOB into chair/Ambulate
-Will cut temporary PW
-Home later today vs tomorrow
Assessment / Plan
-
Assessment:
-S/P Standard Sternotomy/Aortic valve replacement (23 mm Inspiris Resilia)/Left atrial appendage ligation (35 mm atriclip device), by Dr. Weaver, 02/27/25, pod#6
-Severe
-Moderate MR
-LVEF 65-70% per intraop RUCHI
-Preop cath showed no CAD
-Rheumatoid arthritis
-Type 2 diabetes (hgb A1C 8.2)
-Hypertension
-Hyperlipidemia
-Bronchiectasis RLL
-Congenital leukopenia
-S/P Laparoscopy x 2 (06/2008, 06/2009)
-S/p Cardiac cath, 01/26/25
-Acute postop blood loss/Anemia (transfused 1u PRBC on 02/27 and 1u PRBC on 02/28)
-Acute postop hypotension, suspected vasoplegia - got IVF, started on Midodrine
-Acute postop thrombocytopenia (no active bleed)- HIT panel negative
-Acute postop atelectasis
-Acute postop hypovolemia with subsequent hypervolemia
-3 beat run NSVT- Amio was increased to 400 TID.
-Suspected acute postop pericarditis, + rub/ Abnormal ECG- tx with Colchicine
-Acute postop hyponatremia
-Echo 03/02/25:
1. Normal left ventricular size, wall thickness and systolic function. No regional wall motion abnormalities are seen.
2. Ejection fraction is 65-70% by visual assessment.
3. Right ventricular size and systolic function are within normal limits.
4. Status post aortic valve replacement. Murillo Inspiris Resilia aortic valve prosthesis is noted. Aortic prosthesis appears to be functioning normally. Aortic prosthesis is stable and well seated. There is no prosthetic aortic valve stenosis or
obstruction. Aortic valve gradients are normal for this prosthesis type. No residual aortic regurgitation is detected. No aortic paravalvular leak is observed.
5. No other significant valve abnormalities are observed.
6. Trivial pericardial effusion is noted.
7. Pleural effusion is noted.
8. Compared to a prior transesophageal echocardiogram study from 02/27/2025 a trivial pericardial effusion is observed and a pleural effusion is noted.
Discussed patient care with: Cardiology, Nursing, Respiratory Therapy, Pharmacy and Care Team
Subjective
-
Date of Service: March 05, 2025
Pt c/o mild incisional pain, otherwise feels well. Ambulating halls without difficulty
Objective Data
-
PT 16.8 Sec (11.4-14.6) H 02/27/25 11:57
INR 1.35 02/27/25 11:57
APTT 33.8 Sec (23.4-35.0) 02/27/25 11:57
Vital Signs
Vital Signs
Temp Pulse Resp BP Pulse Ox
98.6 F 92 18 114/80 96
03/05/25 00:32 03/05/25 00:32 03/05/25 00:32 03/05/25 00:32 03/05/25 00:32
CT Intake/Output/Weight
03/04/25 03/04/25 03/05/25
06:59 18:59 06:59
Intake Total 470 / 470 100 / 100
Output Total 1025 / 3675 350 / 1200 850 / 1200
Balance -555 / -3205 -350 / -1100 -750 / -1100
SaO2: 96 (RA)
Physical Exam
-
General: Awake, Oriented and AOx3
Cardiovascular: Regular rate & rhythm, No Murmurs, No Rub and No Gallop
Respiratory: Decreased Breath Sounds (at bases, otherwise clear)
Sternum: Stable
Incision: Clean, Dry, Intact and Dressing Intact
Extremities: Other (+trace edema)
Data Reviewed
-
Lab Results: Results Reviewed
Medications: Active Meds Reviewed
Chest X-Ray: Report Reviewed and Image Reviewed
ECG: Report Reviewed and Image Reviewed
--- NOTE | 2025-03-05 05:30 | PTCARENOTE ---
no changes in assessment, VSS. SR/ST 90s-100s. POX 98% on room air. AM labs drawn and sent. weight obtained. pt resting in chair.
[2025-03-05] MEDS: TYLENOL PO ×3 (05:43→22:00)
[2025-03-05 05:46] LABS: Hematocrit 28.0 % (37.0-47.0); Hemoglobin 9.1 g/dL (12.0-16.0); Mean Corp Hgb Conc. 32.5 g/dL (33.0-37.0); Mean Corpuscular Volume 89.2 fL (81.0-99.0); Platelet Count 123 10^3/uL (130-400); Red Cell Dist. Width 14.4 % (11.5-14.5)
[2025-03-05 06:12] LABS: Blood Urea Nitrogen 10 mg/dl (7-17); Calcium 8.5 mg/dl (8.4-10.2); Carbon Dioxide 28 mmol/L (22-30); Chloride 105 mmol/L (98-107); Estimated Creatinine Clearance 93 ml/min; Glucose 69 mg/dl (70-99); Magnesium 2.0 mg/dl (1.6-2.3); Potassium 3.9 mmol/L (3.5-5.1); Sodium 138 mmol/L (135-145); eGFR > 60.00
[2025-03-05] MEDS: KCL 20 MEQ PO ×2 (06:27→20:55)
[2025-03-05] MEDS: CALCIUM GLUCONATE 100 IV (06:27)
[2025-03-05 06:37] LABS: Glucose - Point of Care 87 mg/dl (70-99)
[2025-03-05 07:57] LABS: Glucose - Point of Care 111 mg/dl (70-99)
[2025-03-05] MEDS: PROTONIX 40 MG PO (07:57)
[2025-03-05] MEDS: PACERONE 400 MG PO (07:57)
[2025-03-05] MEDS: COLCHICINE 0.3 MG PO ×2 (07:58→20:54)
[2025-03-05] MEDS: LOPRESSOR 50 MG PO (07:58)
[2025-03-05] MEDS: FARXIGA 10 MG PO (07:58)
[2025-03-05] MEDS: VITAMIN D3 (cholecalciferol) 25 MCG PO (07:59)
[2025-03-05] MEDS: VITAMIN B-12 100 MCG PO (07:59)
[2025-03-05] MEDS: LOW STRENGTH ASPIRIN 81 MG PO (07:59)
[2025-03-05] MEDS: NEURONTIN 100 MG PO ×3 (08:00→21:09)
[2025-03-05] MEDS: GLUCOPHAGE 500 MG PO (08:00)
[2025-03-05] MEDS: MAGNESIUM OXIDE 400 MG PO ×2 (08:00→20:55)
[2025-03-05] MEDS: SENOKOT PO ×2 (08:01→20:59)
[2025-03-05] MEDS: PT'S OWN INSULIN PUMP - HumaLOG 5.6 UNIT SC (08:02)
[2025-03-05] MEDS: LIDOCAINE 4% PATCH TOPICAL (08:02)
[2025-03-05] MEDS: NSS IV (08:50)
--- NOTE | 2025-03-05 12:07 | W.PN.CD ---
Today's Communication / Plan
-
- Continue high-dose metoprolol 50 twice daily
- Continue amiodarone 400 mg
- Increase colchicine 0.3 mg twice a day
Impression / Plan
-
Impression/Plan: 64 y/o female (patient of Dr. Fragoso) with hypertension, dyslipidemia, IDDM2, RA not on DMARDs, and RLL bronchiectasis and symptomatic severe aortic stenosis now s/p surgical AVR 02/27/[address] Nelson.
#Severe aortic stenosis:
-Chronic, progressive.
-s/p #23 Murillo Inspiris Resilia AVR with Dr. Weaver, 02/27/25.
-LVEF normal on OR RUCHI.
-SR on tele/EKG, one single 3 beat run NSVT; amio at 400 TID. Decrease amiodarone to 400 mg daily until discharge, then 200 mg BID for 2 weeks followed by 200 mg daily until seen by cardiology in office.
-Post-op anemia noted, likely real blood loss but also significant dilution (> 5 kg increase in weight).
-Continue aspirin, rosuvastatin.
-Metoprolol on hold due to relative hypotension.
-Furosemide 40 mg IV x1 and monitor.
# Sinus tachycardia
- Patient remains in high rates- still in sinus
- On Amio 400 once a day, metoprolol 50 mg twice a day
- Metoprolol increased on 03/04/2025
- Could be related to pericarditis.
#Abnormal EKG/pericarditis
-Acute.
-EKG shows JERROD (lateral limb leads, anterolateral precordium) with KS depressions.
-She endorses pericarditic symptoms. Exam reveals an anterior rub.
-Preop cath showed no CAD.
-Start colchicine 0.6 mg PO BID x 3 months.
-Repeat echocardiogram shows preserved systolic function, trace pericardial effusion.
-Platelets are recovering. Ok to start aspirin taper:
CT surgery wanted to keep low-dose aspirin for now.
-Aspirin 81 mg daily.
- Colchicine 0.3 mg once a day. Increase to 0.3 twice daily
#Anemia/Thrombocytopenia
-Anemia is relatively chronic.
-No transfusion at this time.
-Thrombocytopenia is relatively acute - possibly post-surgical drop, HIT panel pending.
-Both drops are likely related to volume/dilution.
-Monitor with diuresis.
#Hypertension
-Asymptomatic, no symptoms of lightheadedness on ambulation, well appearing with no sings of infection.
-Suspect post op vasoplegia, possible contribution from high dose oral amio.
-Chronic, currently normotensive to relatively hypotensive.
-Norepinephrine weaned this AM, cont. midodrine.
#IDDM2:
-Chronic, stable.
-SSI per protocol.
#HLD:
-Chronic, stable.
-Continue rosuvastatin.
Subjective/Interval History:
Echo shows normal LV function.
DATA:
TTE, 01/24/2025:
SUMMARY
1. Hyperdynamic left ventricular systolic function without regional wall motion abnormalities. LVEF 72%.
2. Mild concentric LVH.
3. Severe aortic stenosis. Peak/mean gradient 86/52 mmHg, KENIA 0.8 cm², DVI 0.26.
4. Mild aortic regurgitation. PHT 500 ms.
5. No prior study available for comparison.
Cardiac Catheterization, 01/26/2025:
CONCLUSIONS
1. Right dominant circulation with an anterior, low-lying origin of the RCA making it difficult to cannulate from a radial approach with no coronary artery disease in the right or left coronary trees.
2. Severe aortic valve stenosis on echocardiography.
3. Severe right subclavian/innominate artery tortuosity.
SAVR, 02/27/2025:
Procedure(s) Performed:
1. Standard Sternotomy with Aortic and Right Atrial Cannulation.
2. Aortic valve replacement 23 mm Inspiris Resilia.
3. Left atrial appendage ligation with 35 mm atriclip device.
3. Transesophageal echocardiography.
4. Placement of Temporary Ventricular Pacing Wires.
Intraoperative RUCHI, 02/27/2025:
CONCLUSIONS
Hypertrophied left ventricle with normal systolic function and no regional wall
motion abnormalities. LVEF 65-70%.
Normal right ventricular systolic function.
Normal tricuspid valve.
Trace to mild mitral regurgitation.
Moderate to severe aortic stenosis with moderate regurgitation.
Normal left atrial appendage.
Grossly normal thoracic aorta.
POST OPERATIVE FINDINGS
S/P AVR with size 23 bioprosthetic valve; BOGDAN exclusion
The aortic valve is well-seated with no paravalvular leak. The mean gradient is
10 mmHg with a cardiac index of 3 L/min/meters sq. The left atrial appendage is
no longer present with color Doppler confirming the absence of flow. Otherwise
unchanged exam.
Physical Exam
Vital Signs/Labs
Vital Signs
Temp Pulse Resp BP Pulse Ox
98.6 F 89 16 119/88 98
03/05/25 11:24 03/05/25 11:11 03/05/25 11:24 03/05/25 11:11 03/05/25 11:24
03/04/25 03/05/25 03/06/25
06:59 06:59 06:59
Actual Weight 76.3 kg 75.3 kg
03/05/25 05:29
03/05/25 05:29
PT 16.8 Sec (11.4-14.6) H 02/27/25 11:57
INR 1.35 02/27/25 11:57
APTT 33.8 Sec (23.4-35.0) 02/27/25 11:57
Magnesium 2.0 mg/dl (1.6-2.3) 03/05/25 05:29
Physical Exam
Constitutional: No acute distress and Comfortable
EENT: Anicteric and Moist mucous membranes
Cardiovascular: Rhythm & rate is regular (Sinus tachycardia), Pedal edema is absent and JVD pressure is normal
Respiratory: Respiratory effort normal, Lungs clear to auscul. and Wheeze Absent
GI: Non tender and Normal bowel sounds
Other: Skin
Data Reviewed
-
Date of Service: March 05, 2025
Medical Decision Making: Reviewed Test Results, Test Interpretation and Review of Case with other Provider
EKG: Tracing Personally Visualized and interpreted
Echo: Report Reviewed by me
X-Ray/CT/US/MRI/NUC/PET: Image Personally Visualized and interpreted
Labs: Labs Reviewed by me
Old Records: Reviewed
Critical Care Time (in minutes): 32
[2025-03-05 12:26] LABS: Glucose - Point of Care 123 mg/dl (70-99)
[2025-03-05] MEDS: PT'S OWN INSULIN PUMP - HumaLOG 4.2 UNIT SC (12:27)
[2025-03-05] MEDS: TYLENOL 975 MG PO (14:14)
[2025-03-05] MEDS: LOPRESSOR 25 MG PO (15:09)
--- NOTE | 2025-03-05 15:09 | PTCARENOTE ---
Pt oriented. Denying pain. Sinus tach on pleat patternmaker. HR observed 90s - 110s. SALVADOR Villareal, notified. New order for Metoprolol 25mg x1 now and start Metoprolol 75mg PO BID tonight. SaO2 98% on room air. Lungs diminished at bases.
Incentive spirometer encouraged. Insulin pump on RLQ, pt administering to self. Continent of bowel and bladder. Ambulated to bathroom without assistance. Walked to end of hallway and back. HR to 120s but returned to 100s.
[2025-03-05] MEDS: GLUCOPHAGE PO (15:10)
--- NOTE | 2025-03-05 15:45 | PTCARENOTE ---
pt received from previous RN, oriented, OOB in chair. denies pain. temp 99.5F, pt encouraged to use IS 10x/hr while awake. ST on the monitor, HR 100s. V wire insulated. SBP 100-110s. palpable pulses. pt on RA, 99% POX. lungs clear. pt abdomen s/n,
denies n/v. +BS, +flatus, no BM. pt denies constipation. diet tolerated well. pt has own insulin pump. voids in bathroom. sternal incision DOOR FITTER, approximated. chest tube site c/d/i. PIV.
[2025-03-05 17:16] LABS: Glucose - Point of Care 167 mg/dl (70-99)
[2025-03-05] MEDS: PT'S OWN INSULIN PUMP - HumaLOG 4.5 UNIT SC (17:17)
[2025-03-05] MEDS: REMOVE LIDOCAINE PATCH REMOVE (20:46)
[2025-03-05] MEDS: LOPRESSOR 75 MG PO (20:59)
--- NOTE | 2025-03-05 21:00 | PTCARENOTE ---
Patient received from RN @ 1900. Patient sitting in chair w/ call newman in reach. AOX3 pleasant and cooperative. SR on monitor. BP 126/91 HR 97. Heart sounds audible. Radial and pedal pulses present. No edema noted. V-wires insulated. IS
1000 POX 100% RA. Lungs clear bilaterally. Patient confirmed BM. Bowel sounds normoactive. Voiding clear yellow urine. All surgical sites C/D/I. PIV patent and intact. Patient ambulates independently. See worklist for more details.
[2025-03-05] MEDS: CRESTOR 20 MG PO (21:10)
[2025-03-05] MEDS: PACERONE 200 MG PO (21:10)
[2025-03-05] MEDS: PT'S OWN INSULIN PUMP - HumaLOG 1.8 UNIT SC (21:16)
[2025-03-05 21:18] LABS: Glucose - Point of Care 128 mg/dl (70-99)
[2025-03-05] MEDS: TORADOL 15 MG IV (22:15)
[2025-03-06] VITALS (7 sets, daily range): BP systolic 131–170; BP diastolic 82–101; PULSE 100; O2SAT 97–98; BMI 29.4
--- NOTE | 2025-03-06 00:46 | PTCARENOTE ---
Patient reassessed. Patient sleeping comfortably. SR on monitor. HR 84. VSS.
[2025-03-06] MEDS: TYLENOL 975 MG PO (03:55)
--- NOTE | 2025-03-06 04:02 | PTCARENOTE ---
Patient reassessed. SR on monitor. BP 139/101 HR 95 POX 99% RA. PAtient ambulating independently and voiding.
--- NOTE | 2025-03-06 04:06 | W.PN.CT ---
Today's Communication / Plan
-
Plan:
-No major issues overnight. Hemodynamically and neurologically intact
-Off all drips
-Noted to be hypotensive postop, improved, midodrine placed on hold. Tolerating resumption of BB
-Postop tachycardia improved, increased Lopressor to 75 mg BID, tolerating. Placed Losartan on hold
-Cardiology wants pt to go home on Amiodarone 200 mg PO BID x 2 weeks, followed by 200 mg Qdaily until seen by them
-On Colchicine for suspected postop acute pericarditis, increased to 0.3 mg BID by Cardiology. Got a dose of 15 mg Toradol last night and an additional dose this AM
-Postop thrombocytopenia has resolved, 64->78-> 85 -> 114 -> 123 -> 156. HIT panel negative. Resumed ASA yesterday 03/03
-Cont. current meds (Crestor, Amio 400, Lopressor, Colchicine, Gabapentin, Protonix)
-Encourage use of IS
-OOB into chair/Ambulate
-Will cut temporary PW
-Home today
Assessment / Plan
-
Assessment:
-S/P Standard Sternotomy/Aortic valve replacement (23 mm Inspiris Resilia)/Left atrial appendage ligation (35 mm atriclip device), by Dr. Weaver, 02/27/25, pod#7
-Severe
-Moderate MR
-LVEF 65-70% per intraop RUCHI
-Preop cath showed no CAD
-Rheumatoid arthritis
-Type 2 diabetes (hgb A1C 8.2)
-Hypertension
-Hyperlipidemia
-Bronchiectasis RLL
-Congenital leukopenia
-S/P Laparoscopy x 2 (06/2008, 06/2009)
-S/p Cardiac cath, 01/26/25
-Acute postop blood loss/Anemia (transfused 1u PRBC on 02/27 and 1u PRBC on 02/28)
-Acute postop hypotension, suspected vasoplegia - got IVF, started on Midodrine
-Acute postop thrombocytopenia (no active bleed)- HIT panel negative
-Acute postop atelectasis
-Acute postop hypovolemia with subsequent hypervolemia
-3 beat run NSVT- Amio was increased to 400 TID.
-Suspected acute postop pericarditis, + rub/ Abnormal ECG- tx with Colchicine
-Acute postop hyponatremia
-Acute postop sinus tachycardia, likely d/t acute pericarditis
-Echo 03/02/25:
1. Normal left ventricular size, wall thickness and systolic function. No regional wall motion abnormalities are seen.
2. Ejection fraction is 65-70% by visual assessment.
3. Right ventricular size and systolic function are within normal limits.
4. Status post aortic valve replacement. Murillo Inspiris Resilia aortic valve prosthesis is noted. Aortic prosthesis appears to be functioning normally. Aortic prosthesis is stable and well seated. There is no prosthetic aortic valve stenosis or
obstruction. Aortic valve gradients are normal for this prosthesis type. No residual aortic regurgitation is detected. No aortic paravalvular leak is observed.
5. No other significant valve abnormalities are observed.
6. Trivial pericardial effusion is noted.
7. Pleural effusion is noted.
8. Compared to a prior transesophageal echocardiogram study from 02/27/2025 a trivial pericardial effusion is observed and a pleural effusion is noted.
Discussed patient care with: Cardiology, Nursing, Respiratory Therapy, Pharmacy and Care Team
Subjective
-
Date of Service: March 06, 2025
Pt c/o mild incisional pain, otherwise feels well
Objective Data
-
PT 16.8 Sec (11.4-14.6) H 02/27/25 11:57
INR 1.35 02/27/25 11:57
APTT 33.8 Sec (23.4-35.0) 02/27/25 11:57
Vital Signs
Vital Signs
Temp Pulse Resp BP Pulse Ox
99.5 F 95 14 139/101 99
03/06/25 03:50 03/06/25 04:00 03/06/25 00:47 03/06/25 03:58 03/06/25 03:50
CT Intake/Output/Weight
03/05/25 03/05/25 03/06/25
06:59 18:59 06:59
Intake Total 100 / 100 240 / 240
Output Total 1500 / 1850 500 / 1500 1000 / 1500
Balance -1400 / -1750 -260 / -1260 -1000 / -1260
SaO2: 99 (RA)
Physical Exam
-
General: Awake, Oriented and AOx3
Cardiovascular: Regular rate & rhythm, No Murmurs and No Gallop
Respiratory: Decreased Breath Sounds (at bases, otherwise clear)
Sternum: Stable
Incision: Clean, Dry, Intact and Dressing Intact
Extremities: Other (+trace edema)
Data Reviewed
-
Lab Results: Results Reviewed
Medications: Active Meds Reviewed
Chest X-Ray: Report Reviewed and Image Reviewed
ECG: Report Reviewed and Image Reviewed
[2025-03-06 04:40] LABS: Hematocrit 25.7 % (37.0-47.0); Hemoglobin 8.4 g/dL (12.0-16.0); Mean Corp Hgb Conc. 32.7 g/dL (33.0-37.0); Mean Corpuscular Volume 86.2 fL (81.0-99.0); Platelet Count 156 10^3/uL (130-400); Red Cell Dist. Width 13.9 % (11.5-14.5)
[2025-03-06 05:47] LABS: Blood Urea Nitrogen 16 mg/dl (7-17); Calcium 8.5 mg/dl (8.4-10.2); Carbon Dioxide 24 mmol/L (22-30); Chloride 104 mmol/L (98-107); Estimated Creatinine Clearance 70 ml/min; Glucose 105 mg/dl (70-99); Magnesium 1.9 mg/dl (1.6-2.3); Potassium 4.1 mmol/L (3.5-5.1); Sodium 137 mmol/L (135-145); eGFR > 60.00
[2025-03-06] MEDS: TORADOL 15 MG IV (06:00)
[2025-03-06 07:28] LABS: Glucose - Point of Care 91 mg/dl (70-99)
--- NOTE | 2025-03-06 08:02 | W.PN.CD ---
Today's Communication / Plan
-
discharge planning
Impression / Plan
-
Impression/Plan: 64 y/o female (patient of Dr. Fragoso) with hypertension, dyslipidemia, IDDM2, RA not on DMARDs, and RLL bronchiectasis and symptomatic severe aortic stenosis now s/p surgical AVR 02/27/[address] Nelson.
#Severe aortic stenosis:
-Chronic, progressive.
-s/p #23 Murillo Inspiris Resilia AVR with Dr. Weaver, 02/27/25.
-LVEF normal on OR RUCHI.
-SR on tele/EKG, one single 3 beat run NSVT; cont. amiodarone 400 mg daily until discharge, then 200 mg BID for 2 weeks followed by 200 mg daily until seen by cardiology in office.
-Continue aspirin, rosuvastatin.
-cont. metop 75 BID
-weight has improved with diuresis, hold further diuresis
# Sinus tachycardia, improving
- rates 90s on tele today
- On Amio 400 once a day, metoprolol 75 mg twice a day
- Could be related to pericarditis, deconditioning, anemia
#Abnormal EKG/pericarditis
-Acute.
-EKG shows JERROD (lateral limb leads, anterolateral precordium) with NV depressions.
-She endorses pericarditic symptoms. Exam reveals an anterior rub.
-Preop cath showed no CAD.
-Cont. colchicine 0.6 mg PO BID x 3 months.
-Repeat echocardiogram shows preserved systolic function, trace pericardial effusion.
-Platelets are recovering. Ok to start aspirin taper:
-CT surgery wanted to keep low-dose aspirin for now.
-Aspirin 81 mg daily.
-Colchicine 0.3 mg once a day. Increase to 0.3 twice daily
#Anemia/Thrombocytopenia
-platelets recovered, still anemic
-Anemia is relatively chronic.
-No transfusion at this time.
#Hypertension
-BP improved, previously hypotensive requiring midodrine, now normotensive, resume BP meds as needed outpatient
#IDDM2:
-Chronic, stable.
-SSI per protocol.
#HLD:
-Chronic, stable.
-Continue rosuvastatin.
Subjective/Interval History:
tele sinus rhythm
feels well ambulating halls
DATA:
TTE, 01/24/2025:
SUMMARY
1. Hyperdynamic left ventricular systolic function without regional wall motion abnormalities. LVEF 72%.
2. Mild concentric LVH.
3. Severe aortic stenosis. Peak/mean gradient 86/52 mmHg, KENIA 0.8 cm², DVI 0.26.
4. Mild aortic regurgitation. PHT 500 ms.
5. No prior study available for comparison.
Cardiac Catheterization, 01/26/2025:
CONCLUSIONS
1. Right dominant circulation with an anterior, low-lying origin of the RCA making it difficult to cannulate from a radial approach with no coronary artery disease in the right or left coronary trees.
2. Severe aortic valve stenosis on echocardiography.
3. Severe right subclavian/innominate artery tortuosity.
SAVR, 02/27/2025:
Procedure(s) Performed:
1. Standard Sternotomy with Aortic and Right Atrial Cannulation.
2. Aortic valve replacement 23 mm Inspiris Resilia.
3. Left atrial appendage ligation with 35 mm atriclip device.
3. Transesophageal echocardiography.
4. Placement of Temporary Ventricular Pacing Wires.
Intraoperative RUCHI, 02/27/2025:
CONCLUSIONS
Hypertrophied left ventricle with normal systolic function and no regional wall
motion abnormalities. LVEF 65-70%.
Normal right ventricular systolic function.
Normal tricuspid valve.
Trace to mild mitral regurgitation.
Moderate to severe aortic stenosis with moderate regurgitation.
Normal left atrial appendage.
Grossly normal thoracic aorta.
POST OPERATIVE FINDINGS
S/P AVR with size 23 bioprosthetic valve; BOGDAN exclusion
The aortic valve is well-seated with no paravalvular leak. The mean gradient is
10 mmHg with a cardiac index of 3 L/min/meters sq. The left atrial appendage is
no longer present with color Doppler confirming the absence of flow. Otherwise
unchanged exam.
Physical Exam
Vital Signs/Labs
Vital Signs
Temp Pulse Resp BP Pulse Ox
36.6 C 91 16 157/95 100
03/06/25 07:45 03/06/25 07:31 03/06/25 07:45 03/06/25 07:31 03/06/25 07:45
03/05/25 03/06/25 03/07/25
06:59 06:59 06:59
Actual Weight 75.3 kg 75.2 kg
03/06/25 04:24
03/06/25 04:24
PT 16.8 Sec (11.4-14.6) H 02/27/25 11:57
INR 1.35 02/27/25 11:57
APTT 33.8 Sec (23.4-35.0) 02/27/25 11:57
Magnesium 1.9 mg/dl (1.6-2.3) 03/06/25 04:24
Physical Exam
Constitutional: Comfortable
Cardiovascular: Rhythm & rate is regular
Respiratory: Respiratory effort normal
Neuro/Psych: AO x 3
Data Reviewed
-
Date of Service: March 06, 2025
Medical Decision Making: Reviewed Test Results
Labs: Labs Reviewed by me
--- NOTE | 2025-03-06 08:38 | PN.DE.MGMTRT ---
Insulin Management
- -
03/06/2025: Diabetes Management Follow up
64 year old female admitted 02/27 for OR - aortic valve replacement. PMH: HTN, Dyslipidemia, RA, T2DM on insulin and bronchiectasis with recently discovered symptomatic severe aortic stenosis. Symptoms predominantly with activity including shortness
of breath and chest tightness, escalating symptoms that were starting to occur at rest as well. Had noticed significant change in activity tolerance and symptomatology when compared to 6 months prior. Prior to admission was taking 500 mg metformin
in AM, Medtronic insulin pump with Humalog insulin. A1C 8.2%, cr .6 eGFR > 60.
Pt is awake alert and oriented, getting ready for discharge home, able to discuss diabetes care. POD # 7 s/p Aortic valve replacement.
03/01 Transitioned from critical care glycemic protocol insulin infusion back to Medtronic insulin pump at 10:30am. Patient uses extended wear infusion set, Humalog insulin and the Medtronic Guardian Sensor. New sensor started by , insulin
pump infusing at basal rate.
Insulin pump settings as follows:
Basal rate .8 every hour, 24 hour total 19.2 units.
I:CHO ratio 1:8
Sensitivity 1:45
Active insulin 2 hours.
Target glucose 100 to 120
Explained policy to patient accucheks will be checked by nurse with hospital device before each meal and HS. Patient will complete pump bedside worksheet. Glucose range yesterday 111 to 167. Fasting glucose 105V, 91 POC. Cont Farxiga 10mg daily,
MFM 500mg daily PORTFOLIO ACCOUNTANT. Per CM Farxiga co-pay is $15
Patient able to manage pump without difficulty. Will continue patients own insulin pump today, no change to pump settings. had a lengthy discussion with pt and , encouraged pt to adhere to low sodium, lean protein and vegetable rich diet.
Informed Patient that she will go through cardiac rehab where she will meet with the Cellar Worker and will have a more detailed discussion about heart healthy and diabetic diets.
Discussed with Nurse. Will cont to follow.
Diabetes History
- -
Type of Diabetes: 2 requiring insulin
Pre-Admission Diabetes Regimen
03/06/25
04:24
Creatinine 0.8
Lab Results
Hemoglobin A1c 8.2 % (4.0-5.9) H 02/16/25 12:43
Insulin Pump Settings
IP Diabetes Regimen
03/05/25 03/05/25 03/05/25
17:15 21:15
Glucose
POC Glucose 123 H 167 H 128 H
03/06/25 03/06/25
04:24 07:27
Glucose 105 H
POC Glucose 91
Meal type: Breakfast
Amount consumed: 100%
Patient Education
--- NOTE | 2025-03-06 10:01 | W.DCSUMMARY ---
Discharge Summary
Discharge Data
Date of Admission: 02/27/25
Date of Discharge: 03/06/25
-
Pending Results: No
Hospital Course
Primary care physician: Dena Gallegos
Outpatient back closer: Agustin Fragoso
Inpatient consultants: [facility] Cardiology, pulmonary textile engraver, diabetes nurse practitioner
Procedures:
1. Aortic valve replacement, left atrial appendage clip (02/27/2025)
Primary Diagnosis:
1. Aortic valve stenosis
Secondary Diagnoses:
1. Rheumatoid arthritis
2. Type 2 diabetes (hgb A1C 8.2)
3. Hypertension
4. Hyperlipidemia
5. Bronchiectasis RLL
6. Congenital leukopenia
7. S/P Laparoscopy x 2 (06/2008, 06/2009)
-Acute postop blood loss/Anemia (transfused 1u PRBC on 02/27 and 1u PRBC on 02/28)
-Acute postop hypotension, suspected vasoplegia - got IVF, started on Midodrine
-Acute postop thrombocytopenia (no active bleed)- HIT panel negative
-Acute postop atelectasis
-Acute postop hypovolemia with subsequent hypervolemia
-3 beat run NSVT- Amio was increased to 400 TID.
-Suspected acute postop pericarditis
-Acute postop hyponatremia
-Acute postop sinus tachycardia, likely d/t acute pericarditis
HPI: 64 year old female was electively admitted on 02/27/25 for An aortic valve replacement and left atrial appendage clipping due to severe aortic stenosis with dyspnea on exertion.
Hospital course: Patient was taken to the operating room and underwent an aortic valve replacement #23 mm Inspiris Resilia and left atrial appendage ligation #35 mm atriclip device by Dr. Mony Weaver. Postprocedure RUCHI reported an EF of 65 to 70%
with AV mean gradient 10 mmHg. For further details, please see operative note. Patient required no intraoperative blood products and returned to CVICU on Levophed, Precedex, and insulin. Patient was transfused 1 PRBC for hemoglobin 7.6. She was
extubated the day of surgery. On postoperative day 1, patient received additional 1 PRBC, started on midodrine for blood pressure support. On postoperative day #2, patient was weaned off Levophed and midodrine maintained at 5 mg 3 times daily.
Montelongo and chest tubes were discontinued. Colchicine was initiated for postop pericarditis. Aspirin held due to thrombocytopenia (Plt 64k) and HIT sent and ultimately negative. She was seen by the diabetic nurse practitioner and transitions to an
insulin pump. On postoperative day 3, the right IJ cordis was removed. Blood pressure was improving and beta-betty resumed. On postoperative day #4, platelets had improved to 84K and aspirin was resumed. Patient was diuresed. Midodrine was
converted to as needed dosing as her blood pressure normalized. On postoperative day #5, patient remained in sinus tachycardia and metoprolol was increased to 25 mg twice daily. On postoperative #6, heart rates plateaued at 110 range and metoprolol
was increased to 75 mg twice daily. On postoperative day #7, the patient maintained sinus rhythm in the 80-90BPM range. Systolic blood pressure increased to 135-160mmHg and Losartan was resumed at 50mg daily. Patient ambulated in the halls with
cardiac rehab and was deemed stable for discharge. Labs on the day of discharge: WBC 3.5, hemoglobin 8.4, platelets 156k, sodium 137, potassium 4.1, creatinine 0.8. Patient will be followed by transitional care nurses and have follow-up CBC 1 week
Home medication changes:
Metformin increased to twice daily
Combination Losartan-HCTZ changed to monotherapy with Losartan and dosage decreased to 50 mg daily
Discharge Plan
-
Patient Disposition: Home (Routine Discharge)
Discharge Diagnosis/Procedures: AVR, left atrial appendage clip (02/27/25)
Condition: Good
Diet: Low Cholesterol, 2 Gram Sodium and Restrict fluids to 64 oz
Activity: No strenuous activity
Driving Restrictions: Not until seen by your Dr
Bathing Restrictions: OK to Shower
Blood Work: CBC in 1 week
Other Services: Cardiac Rehab
Specialty Instructions: Weigh Daily- Call MD for wt gain/loss 3 lbs overnight/5 lbs in 1 week
Activity Restrictions/Additional Instructions:
ACTIVITY:
-No strenuous activity: no heavy lifting, pushing, pulling anything over 15 pounds for one month
-continue to use stairs as tolerated
DRIVING RESTRICTIONS:
-No driving for one month or until approved by your surgeon
WOUND CARE:
-Shower daily. Use soap & water.
-No lotions, creams or powders on incision area.
DIET:
-continue a low fat/low cholesterol diet.
-IF you are diabetic, continue carb controlled diet.
CARDIAC REHAB:
-Please make appointment to start in 5-6 weeks with your local hospital program. (See Cardiac Rehabilitation Discharge Booklet).
SPECIALTY INSTRUCTIONS:
-Weigh yourself daily. Call your physician for any weight gain/loss of 3 lbs overnight or 5 lbs in one week.
-REPORT any clicking noise or uneven appearance of your sternum to your surgeon immediately.
-If you smoke, you are instructed to quit. The [place] smoking hotline phone number is [phone]
Referrals:
CT Transitional Care Nurse [Outside]
Referral Note: The Cardiothoracic Transitional Care Nurse will call you to set up a visit in 1-2 days.
[facility] [Outside] - 04/10/25 8:30 am
Referral Note: Cardiac Rehab Orientation appointment is on 04/10/25 at 8:30 AM
The Cardiac Rehab gym is located on the first floor of the [facility].
Jennifer Rachel CRNP [Specified Professional Personl, Cardiology] - 04/19/25 1:40 pm
Dena Gallegos MD [Family Provider, Family Practice]
Mony Weaver MD [Active, Cardiac Surgery] - 03/29/25 9:30 am
Prescriptions:
New
amiodarone 200 mg tablet
200 mg PO BID Qty: 60 0RF
Rx Instructions:
200mg BID x 14 days, then to 200mg daily until seen by back closer
acetaminophen 325 mg Tablet
650 mg PO Q4HPRN PRN (Reason: mild pain,headache,temp >101F ) Qty: 0 0RF
cyclobenzaprine 10 mg Tablet
5 mg PO Q8HPRN PRN (Reason: muscle spasm) Qty: 10 0RF
colchicine 0.6 mg Tablet
0.3 mg PO BID Qty: 60 0RF
losartan 50 mg Tablet
50 mg PO DAILY Qty: 30 2RF
oxycodone 5 mg Tablet
5 mg PO Q4HPRN PRN (Reason: moderate pain) Qty: 10 0RF
metoprolol tartrate 25 mg Tablet
75 mg PO BID Qty: 60 2RF
dapagliflozin propanediol 10 mg Tablet
10 mg PO DAILY Qty: 30 2RF
metformin 500 mg Tablet
500 mg PO BID@0800,1700 Qty: 60 2RF
gabapentin 100 mg Capsule
100 mg PO TID Qty: 30 0RF
Continued
leflunomide 20 mg Tablet
20 mg PO DAILY
Humalog U-100 Insulin 100 unit/mL Cartridge
1 sliding scale dose SC DIRECTED
Rx Instructions:
insulin pump
rosuvastatin 20 mg Tablet
20 mg PO HS
aspirin 81 mg Capsule
81 mg PO DAILY
Biosil
1 tab PO DAILY
CoQ-10
1 tab PO DAILY
insulin lispro 100 unit/mL Insulin Pen
9 unit SC TID PRN (Reason: with meals if pump fails)
insulin glargine 100 unit/mL (3 mL) Insulin Pen
14 unit SC QPM PRN (Reason: if insulin pump fails)
Vitamin B-12
1 tab PO DAILY
Vitamin D3
1 tab PO DAILY
Discontinued
metformin 500 mg Tablet
500 mg PO DAILY
losartan-hydrochlorothiazide 100-25 mg Tablet
1 tab PO DAILY
Discharge Orders:
Discharge Patient (As Directed); Ordered 03/06/25
Ordered By: Demetria Davis
Care Plan Goals
Care Plan Goals:
Problem: Readiness for enhanced knowledge related to diagnosis and treatment plan
Goal: Understand your diagnosis and treatment plan needs, including medications if applicable.
Instructions: Know your diagnosis, underlying causes and treatment plan options, including medications if applicable. Consult with your health care team to learn about your diagnosis and treatment plan, including medications if applicable.
Discharge Date and Time
Print Language: [place]
--- NOTE | 2025-03-06 10:47 | PTCARENOTE ---
assumed care of pt from previous shift RN, sinus rhythm on tele, VSS, bp elevated-medications adjusted. Lungs clr, coughing and deep breathing encouraged. +bs, tolerating PO intake, voids spontaneously. Surgical sites stable. V wire cut by CT SYED.
Pt tolerated cardiac rehab. Currently showering.
[2025-03-06] MEDS: PROTONIX 40 MG PO (11:04)
[2025-03-06] MEDS: PACERONE 400 MG PO (11:04)
[2025-03-06] MEDS: NEURONTIN 100 MG PO (11:04)
[2025-03-06] MEDS: COZAAR 50 MG PO (11:04)
[2025-03-06] MEDS: LOPRESSOR 75 MG PO (11:04)
[2025-03-06] MEDS: COLCHICINE 0.3 MG PO (11:04)
[2025-03-06] MEDS: MAGNESIUM OXIDE 400 MG PO (11:05)
[2025-03-06] MEDS: FARXIGA 10 MG PO (11:05)
[2025-03-06] MEDS: LOW STRENGTH ASPIRIN 81 MG PO (11:05)
[2025-03-06] MEDS: VITAMIN B-12 100 MCG PO (11:05)
[2025-03-06] MEDS: VITAMIN D3 (cholecalciferol) 25 MCG PO (11:05)
[2025-03-06] MEDS: GLUCOPHAGE 500 MG PO (11:05)
[2025-03-06] MEDS: PT'S OWN INSULIN PUMP - HumaLOG 4.5 UNIT SC (11:10)
[2025-03-06] MEDS: LIDOCAINE 4% PATCH TOPICAL (11:11)
[2025-03-06] MEDS: SENOKOT PO (11:11)
[2025-03-06] MEDS: NSS IV (11:12)
--- NOTE | 2025-03-06 11:39 | CM ---
pt dc today, pt agreeable to a f/u visit from the ct transitional care nurse after dc
--- NOTE | 2025-03-06 11:46 | W.PN.UPDATE ---
Update Note
Progress Note Update
Patient has not required pacing wires. There has been no bradycardia, arrhythmias, complete heart block, or significant pauses.
Site was cleansed with CHG thoroughly
1 ventricular epicardial pacing wires were cut at the skin.
Domi FRANCO
Cardiac Surgery
--- NOTE | 2025-03-06 11:51 | PTCARENOTE ---
pt tolerated shower. Discharge instructions, medication list and follow up appointments reviewed w the pt and her , questions encouraged.
== END 2025-03-06 11:53 | disposition home or self-care (01) | DRG 220 ==
LOC: CVICU 05:01
PROVIDERS: Anesthesiology; Clinical Nurse Specialist Acute Care; Nurse Practitioner; ADMITTING PHYSICIAN Student in an Organized Health Care Education/Training Program; CONSULT PHYSICIAN Internal Medicine; CONSULT PHYSICIAN Student in an Organized Health Care Education/Training Program; FAMILY PHYSICIAN Family Medicine
PROC: B24BZZ4 Ultrasonography of Heart with Aorta, Transesophageal (ICD-10-PCS; 2025-02-27)
PROC: 5A1221Z Performance of Cardiac Output, Continuous (ICD-10-PCS; 2025-02-27)
PROC: 30233N1 Transfusion of Nonautologous Red Blood Cells into Peripheral Vein, Percutaneous Approach (ICD-10-PCS; 2025-02-27)
PROC: 02RF08Z Replacement of Aortic Valve with Zooplastic Tissue, Open Approach (ICD-10-PCS; 2025-02-27)
PROC: 02L70CK Occlusion of Left Atrial Appendage with Extraluminal Device, Open Approach (ICD-10-PCS; 2025-02-27)
DX: I35.2 Nonrheumatic aortic (valve) stenosis with insufficiency (principal); D62 Acute posthemorrhagic anemia; J98.11 Atelectasis; I47.20 Ventricular tachycardia, unspecified; E87.1 Hypo-osmolality and hyponatremia; I30.8 Other forms of acute pericarditis; M05.79 Rheumatoid arthritis with rheumatoid factor of multiple sites without organ or systems involvement; E11.9 Type 2 diabetes mellitus without complications; I10 Essential (primary) hypertension; E78.2 Mixed hyperlipidemia; J47.9 Bronchiectasis, uncomplicated; D70.0 Congenital agranulocytosis; E86.1 Hypovolemia; E87.70 Fluid overload, unspecified; D69.59 Other secondary thrombocytopenia; I95.81 Postprocedural hypotension
CPT/HCPCS: 36415; 71045; 71046; 80048; 80053; 81003; 81015; 82248; 82330; 82565; 82805; 82810; 82947; 82962; 83036; 83735; 84132; 84302; 84520; 85014; 85018; 85025; 85027; 85049; 85610; 85730; 86022; 86803; 86850; 86900; 86901; 86920; 87070; 88305; 88311; 93005; 93308; 93312; 93320; 93321; 93325; 93880; 94002; 94010; 94060; J2916; P9016; P9045; P9047